=== PATIENT | male | born 1940 | race Two or more races ===

== ENCOUNTER 2022-11-17 17:57 | Inpatient (IN) | payer MEDICAID, OTHER ==
[~2022-11-17] VITALS: Ht 157.5 cm; Wt 63.3 kg
[2022-11-17 18:49] LABS: Basophils # (auto) 0.1 10 ^3/uL (0-0.2); Basophils % (auto) 0.8 % (0.0-2.0); Eosinophils # (auto) 0.1 10 ^3/uL (0-0.8); Eosinophils % (auto) 1.7 % (0.0-7.0); Hematocrit 41.6 % (41.0-53.0); Hemoglobin 13.8 g/dL (13.5-17.5); Lymphocytes # (auto) 3.5 10 ^3/uL (0.4-5.4); Lymphocytes % (auto) 42.6 % (10.0-50.0); Mean Corpuscular Hemoglobin 29.6 pg (28.0-32.0); Mean Corpuscular Volume 89.6 fL (80.0-100.0); Monocytes # (auto) 0.7 10 ^3/uL (0-1.3); Monocytes % (auto) 7.9 % (0.0-12.0); Neutrophils # (auto) 3.9 10 ^3/uL (1.6-8.6); Nucleated Red Blood Cells % 0.1 %; Red Blood Cells 4.65 10^6/uL (4.5-5.90); Red Cell Distribution Width 14.6 % (11.8-14.3); White Blood Cell 8.3 10^3/uL (4.4-10.8)
[2022-11-17 18:59] LABS: Urine Bacteria None Seen /hpf (None Seen); Urine WBC None Seen /hpf (0 - 3)
[2022-11-17 19:16] LABS: Urine Mucus MODERATE (None Seen)
[2022-11-17 19:19] LABS: Urine Blood Negative /uL (Negative); Urine Clarity CLEAR (Clear); Urine Color Straw (Yellow); Urine Protein, UAD 1+ (Negative); Urine Urobilinogen Normal (Negative); Urine pH 5 (5.0-8.0)
[2022-11-17 19:25] LABS: Albumin 3.6 g/dL (3.4-5.0); Magnesium 2.3 mg/dL (1.6-2.6); Potassium 3.9 mmol/L (3.5-5.1)
[2022-11-17 19:27] LABS: BUN/Creatinine Ratio 35.1 (10.0-20.0)
[2022-11-17 19:32] LABS: Bilirubin, Total 0.6 mg/dL (0.2-1.0); Total Protein 7.5 g/dL (6.4-8.2)
[2022-11-17] MEDS ORDERED: HYDROmorphone HCL 2 MG/ML VL/or syr IM ONE (21:45)
[2022-11-17] MEDS ORDERED: SODIUM CHLORIDE 0.9% 1,000 ML IV ONE (22:00)
[2022-11-17] MEDS ORDERED: NITROGLYCERIN 0.4 MG SL TAB SL PRN (23:30)
[2022-11-17] MEDS ORDERED: ONDANSETRON HCL 4 MG/2 ML VIAL IV PRN (23:30)
[2022-11-17] MEDS ORDERED: MORPHINE SULFATE INJ 2 MG/ml SYRG IV PRN (23:30)
[2022-11-18] MEDS ORDERED: cefTRIAXone 1GM/50ML D5W 50 ML IV ONE
[2022-11-18] MEDS: SODIUM CHLORIDE 0.9% 1,000 ML IV SCH ×2 (00:54→16:02)
[2022-11-18 02:06] VITALS: PULSE 79; RESP 12; O2SAT 97
[2022-11-18 07:37] LABS: Basophils # (auto) 0 10 ^3/uL (0-0.2); Basophils % (auto) 0.3 % (0.0-2.0); Eosinophils # (auto) 0 10 ^3/uL (0-0.8); Eosinophils % (auto) 0.6 % (0.0-7.0); Hematocrit 37.5 % (41.0-53.0); Hemoglobin 12.5 g/dL (13.5-17.5); Lymphocytes # (auto) 1.7 10 ^3/uL (0.4-5.4); Lymphocytes % (auto) 26.2 % (10.0-50.0); Mean Corpuscular Hemoglobin 29.7 pg (28.0-32.0); Mean Corpuscular Hgb Conc. 33.3 g/dL (32.0-36.0); Mean Corpuscular Volume 89.2 fL (80.0-100.0); Monocytes # (auto) 0.7 10 ^3/uL (0-1.3); Monocytes % (auto) 10.4 % (0.0-12.0); Neutrophils # (auto) 4.1 10 ^3/uL (1.6-8.6); Neutrophils % (auto) 62.5 % (37.0-80.0); Red Cell Distribution Width 14.1 % (11.8-14.3); White Blood Cell 6.6 10^3/uL (4.4-10.8)
[2022-11-18 07:40] VITALS: RESP 12; O2SAT 97
[2022-11-18 08:03] LABS: Albumin 2.9 g/dL (3.4-5.0); BUN/Creatinine Ratio 33.3 (10.0-20.0); Calcium 8.5 mg/dL (8.5-10.1); Potassium 3.8 mmol/L (3.5-5.1)
[2022-11-18 08:07] LABS: Bilirubin, Total 0.5 mg/dL (0.2-1.0); Total Protein 6.4 g/dL (6.4-8.2)
[2022-11-18] MEDS ORDERED: FAMOTIDINE (10MG/ML) 2ML VL IV SCH (10:00)
[2022-11-18 20:15] VITALS: PULSE 76; RESP 14; O2SAT 98
[2022-11-18 23:40] VITALS: BP 161/97; PULSE 72; RESP 18; TEMP 97.8; O2SAT 96
[2022-11-18] MEDS: hydrALAZINE HCL 20 MG/ML VL IV PRN (23:44)
[2022-11-19] VITALS: PULSE 72; RESP 18; O2SAT 96
[2022-11-19] MEDS: cefTRIAXone 1GM/50ML D5W 50 ML IV SCH (00:55)
[2022-11-19] MEDS ORDERED: TIOTCAP IN (03:38)
[2022-11-19] MEDS ORDERED: QUET100T38 PO (03:38)
[2022-11-19] MEDS ORDERED: CLON-853 PO (03:38)
[2022-11-19] MEDS ORDERED: FLUT100M IN (03:38)
[2022-11-19] MEDS ORDERED: TELM1TAB35 PO (03:38)
[2022-11-19] MEDS ORDERED: CARB-118 PO (03:38)
[2022-11-19] MEDS ORDERED: OLOP0.2S15 OP (03:59)
[2022-11-19] MEDS: SODIUM CHLORIDE 0.9% 1,000 ML IV SCH ×2 (08:50→18:00)
[2022-11-19 09:11] VITALS: BP 104/75; PULSE 76; RESP 19; TEMP 98.4; O2SAT 97
[2022-11-19 12:59] VITALS: BP 150/95; PULSE 68; RESP 14; TEMP 98; O2SAT 98
[2022-11-19] MEDS ORDERED: GADOTERATE MEG 7.5 MMOL/15ml INJ (0.5MMOL/ml) IV ONE (14:19)
[2022-11-19 17:16] VITALS: BP 165/98; PULSE 70; RESP 17; TEMP 98; O2SAT 97
[2022-11-19] MEDS: hydrALAZINE HCL 20 MG/ML VL IV PRN (17:46)
[2022-11-19 18:54] VITALS: BP 117/69; PULSE 102
[2022-11-19 22:00] VITALS: BP 133/70; PULSE 76; RESP 17; TEMP 98; O2SAT 98
[2022-11-20] MEDS: cefTRIAXone 1GM/50ML D5W 50 ML IV SCH (00:57)
[2022-11-20 05:00] VITALS: BP 138/67; PULSE 63; RESP 17; TEMP 98.1; O2SAT 98
[2022-11-20 08:30] VITALS: BP 133/78; PULSE 58; RESP 17; TEMP 97.5
[2022-11-20 09:00] VITALS: BP 133/78; PULSE 58; RESP 17; TEMP 97.5; O2SAT 98
[2022-11-20 09:25] LABS: INR 1.14 (0.9-1.15); Partial Thromboplastin Time 28.3 SEC (24.5-34.5); Prothrombin Time 11.9 sec (9.3-11.8)
[2022-11-20] MEDS ORDERED: CLON-857 PO (11:12)
[2022-11-20] MEDS ORDERED: ARTIFICIAL TEARS 15ml EACHEYE PRN (11:45)
[2022-11-20] MEDS: SODIUM CHLORIDE 0.9% 1,000 ML IV SCH (11:47)
[2022-11-20 12:45] VITALS: BP 141/73; PULSE 67; RESP 18; TEMP 97.6; O2SAT 98
[2022-11-20] MEDS ORDERED: LOSARTAN POTASSIUM 50 MG TAB PO ONE (16:30)
[2022-11-20 16:56] VITALS: BP 150/68; PULSE 61; RESP 17; TEMP 97.6; O2SAT 98
[2022-11-20 22:00] VITALS: BP 130/85; PULSE 63; RESP 16; TEMP 97.5; O2SAT 98
[2022-11-20] MEDS: CARBIDOPA W LEVODOPA 25/100mg TABLET PO SCH (22:00)
[2022-11-21] MEDS: cefTRIAXone 1GM/50ML D5W 50 ML IV SCH (01:07)
[2022-11-21 05:00] VITALS: BP 116/64; PULSE 69; RESP 16; TEMP 98.5; O2SAT 96
[2022-11-21 08:00] VITALS: BP 137/86; PULSE 63; RESP 16; RESP 18; TEMP 97.7
[2022-11-21] MEDS: LOSARTAN POTASSIUM 50 MG TAB PO SCH (09:28)
[2022-11-21] MEDS: CARBIDOPA W LEVODOPA 25/100mg TABLET PO SCH ×2 (09:28→21:46)
[2022-11-21 09:36] VITALS: BP 137/86; PULSE 65; RESP 20; TEMP 97.7; O2SAT 96
[2022-11-21] MEDS ORDERED: PATIENTS OWN MEDICATION PO SCH (10:00)
[2022-11-21] MEDS: ADVAIR 100/50 DISKUS PO SCH (13:22)
[2022-11-21] MEDS: SPIRIVA INHALER PO SCH (13:23)
[2022-11-21] MEDS: SODIUM CHLORIDE 0.9% 1,000 ML IV SCH (13:24)
[2022-11-21 16:32] VITALS: BP 158/94; PULSE 67; RESP 12; O2SAT 97
[2022-11-21 17:36] VITALS: BP 147/86; PULSE 71; RESP 20; TEMP 98.6; O2SAT 95
[2022-11-21 20:00] VITALS: PULSE 64; RESP 18; O2SAT 92
[2022-11-21] MEDS: DOCUSATE SOD 100 MG CAP PO PRN (21:45)
[2022-11-22] MEDS: cefTRIAXone 1GM/50ML D5W 50 ML IV SCH (00:58)
[2022-11-22] MEDS: ACETAMINOPHEN 325 MG TAB PO PRN ×2 (01:52→13:52)
[2022-11-22] MEDS: SODIUM CHLORIDE 0.9% 1,000 ML IV SCH ×2 (03:30→09:53)
[2022-11-22 05:00] VITALS: BP 126/77; PULSE 64; RESP 18; O2SAT 95
[2022-11-22 08:00] VITALS: BP 136/85; PULSE 78; RESP 18; TEMP 98; O2SAT 94; O2SAT 95
[2022-11-22] MEDS: LOSARTAN POTASSIUM 50 MG TAB PO SCH (09:43)
[2022-11-22] MEDS: CARBIDOPA W LEVODOPA 25/100mg TABLET PO SCH ×2 (09:43→22:03)
[2022-11-22] MEDS: ADVAIR 100/50 DISKUS PO SCH (09:49)
[2022-11-22] MEDS: SPIRIVA INHALER PO SCH (09:50)
[2022-11-22 12:00] VITALS: BP 150/78; PULSE 67; RESP 20; TEMP 98.5; O2SAT 97
[2022-11-22 16:00] VITALS: BP 134/83; PULSE 71; RESP 21; TEMP 97.3; O2SAT 96
[2022-11-22 20:00] VITALS: PULSE 69; RESP 20; O2SAT 98
[2022-11-22 22:00] VITALS: BP 155/74; PULSE 69; RESP 20; TEMP 98.3; O2SAT 98
[2022-11-22] MEDS: HYDROcodone-ACET 5/325MG TAB PO PRN (23:44)
[2022-11-23] VITALS (19 sets, daily range): BP systolic 111–167; BP diastolic 75–97; PULSE 60–75; RESP 12–21; TEMP 97.6–98.5; O2SAT 93–97
[2022-11-23] MEDS: cefTRIAXone 1GM/50ML D5W 50 ML IV SCH (03:21)
[2022-11-23 06:04] LABS: Basophils # (auto) 0 10 ^3/uL (0-0.2); Basophils % (auto) 0.6 % (0.0-2.0); Eosinophils # (auto) 0.2 10 ^3/uL (0-0.8); Eosinophils % (auto) 3.1 % (0.0-7.0); Hematocrit 33.8 % (41.0-53.0); Hemoglobin 11.4 g/dL (13.5-17.5); Lymphocytes # (auto) 1.7 10 ^3/uL (0.4-5.4); Mean Corpuscular Hgb Conc. 33.8 g/dL (32.0-36.0); Mean Corpuscular Volume 88.8 fL (80.0-100.0); Monocytes # (auto) 0.7 10 ^3/uL (0-1.3); Monocytes % (auto) 12.8 % (0.0-12.0); Neutrophils # (auto) 2.7 10 ^3/uL (1.6-8.6); Neutrophils % (auto) 50.5 % (37.0-80.0); Nucleated Red Blood Cells % 0.1 %; Red Blood Cells 3.81 10^6/uL (4.5-5.90); Red Cell Distribution Width 13.9 % (11.8-14.3); White Blood Cell 5.3 10^3/uL (4.4-10.8)
[2022-11-23 06:19] LABS: INR 1.15 (0.9-1.15); Partial Thromboplastin Time 30.4 SEC (24.5-34.5)
[2022-11-23 06:35] LABS: Albumin 2.7 g/dL (3.4-5.0); BUN/Creatinine Ratio 30.2 (10.0-20.0); Calcium 8.1 mg/dL (8.5-10.1); Potassium 3.7 mmol/L (3.5-5.1)
[2022-11-23 06:38] LABS: Bilirubin, Total 0.4 mg/dL (0.2-1.0); Total Protein 5.9 g/dL (6.4-8.2)
[2022-11-23] MEDS ORDERED: fentaNYL CITRATE 100 MCG/2 ML VL ONE (08:29)
[2022-11-23] MEDS ORDERED: LIDOCAINE 2%HCL (LOCAL ANESTH.) INJ 20ML MDV ONE (08:29)
[2022-11-23] MEDS ORDERED: MIDAZOLAM HCL 2MG/2ML 2ml VIAL (1mg/ml) ONE (08:29)
[2022-11-23] MEDS ORDERED: IODIXANOL 320MG/ML 100ML BTL IV ONE ×2 (08:54→09:14)
[2022-11-23] MEDS: CARBIDOPA W LEVODOPA 25/100mg TABLET PO SCH ×2 (10:00→22:04)
[2022-11-23] MEDS: ADVAIR 100/50 DISKUS PO SCH (10:00)
[2022-11-23] MEDS: SPIRIVA INHALER PO SCH (10:00)
[2022-11-23] MEDS: LOSARTAN POTASSIUM 50 MG TAB PO SCH (10:00)
[2022-11-23] MEDS: SODIUM CHLORIDE 0.9% 1,000 ML IV SCH (12:50)
[2022-11-23] MEDS: HYDROmorphone HCL 2 MG/ML VL/or syr IV PRN ×2 (15:18→20:12)
[2022-11-24] VITALS (7 sets, daily range): BP systolic 93–147; BP diastolic 67–84; PULSE 78–98; RESP 16–18; TEMP 97.3–98.7; O2SAT 93–96
[2022-11-24] MEDS: cefTRIAXone 1GM/50ML D5W 50 ML IV SCH (00:56)
[2022-11-24] MEDS: HYDROmorphone HCL 2 MG/ML VL/or syr IV PRN (01:08)
[2022-11-24] MEDS: SODIUM CHLORIDE 0.9% 1,000 ML IV SCH ×2 (05:30→21:41)
[2022-11-24] MEDS: LOSARTAN POTASSIUM 50 MG TAB PO SCH (09:54)
[2022-11-24] MEDS: CARBIDOPA W LEVODOPA 25/100mg TABLET PO SCH ×2 (09:54→21:41)
[2022-11-24] MEDS: HYDROcodone-ACET 5/325MG TAB PO PRN (09:55)
[2022-11-24] MEDS: DOCUSATE SOD 100 MG CAP PO PRN ×2 (09:58→21:41)
[2022-11-24] MEDS: ADVAIR 100/50 DISKUS PO SCH (10:00)
[2022-11-24] MEDS: SPIRIVA INHALER PO SCH (10:00)
[2022-11-25] MEDS: cefTRIAXone 1GM/50ML D5W 50 ML IV SCH (01:07)
[2022-11-25 05:00] VITALS: BP 128/75; PULSE 85; RESP 18; TEMP 98.6; O2SAT 94
[2022-11-25 08:00] VITALS: PULSE 82; RESP 20; O2SAT 94
[2022-11-25] MEDS: CARBIDOPA W LEVODOPA 25/100mg TABLET PO SCH (08:34)
[2022-11-25] MEDS: DOCUSATE SOD 100 MG CAP PO PRN (08:34)
[2022-11-25] MEDS: LOSARTAN POTASSIUM 50 MG TAB PO SCH (08:41)
[2022-11-25 09:00] VITALS: BP 108/72; PULSE 82; RESP 20; TEMP 97.6; O2SAT 94
[2022-11-25] MEDS: ADVAIR 100/50 DISKUS PO SCH (09:14)
[2022-11-25] MEDS: SPIRIVA INHALER PO SCH (09:14)
[2022-11-25 13:00] VITALS: BP 121/66; PULSE 80; RESP 19; TEMP 97.7; O2SAT 95
[2022-11-25] MEDS: SODIUM CHLORIDE 0.9% 1,000 ML IV SCH (14:50)
[2022-11-25 16:43] VITALS: BP 121/64; PULSE 80; RESP 19; TEMP 97.7; O2SAT 95
[2022-11-25 16:59] VITALS: BP 136/79; PULSE 88; RESP 20; TEMP 98; O2SAT 94
[2022-11-25] MEDS ORDERED: TIOTCAP IN (17:58)
[2022-11-25] MEDS ORDERED: FLUT100M IN (17:58)
== END 2022-11-25 18:00 | disposition home or self-care (01) | DRG 447 ==
LOC: ER 18:01 → EDBD 18:01 → OVERFLOW 23:28 → WEST WING 11-18 23:14
PROVIDERS: ADMIT Nurse Practitioner Family; ATTEND Internal Medicine
PROC: 04LA3ZZ Occlusion of Left Renal Artery, Percutaneous Approach (ICD-10-PCS; principal; 2022-11-23)
PROC: B4171ZZ Fluoroscopy of Left Renal Artery using Low Osmolar Contrast (ICD-10-PCS; 2022-11-23)
DX: D17.71 Benign lipomatous neoplasm of kidney (principal); F02.80 Dementia in other diseases classified elsewhere, unspecified severity, without behavioral disturbance, psychotic disturbance, mood disturbance, and anxiety; K40.30 Unilateral inguinal hernia, with obstruction, without gangrene, not specified as recurrent; G20 Parkinson's disease; N39.0 Urinary tract infection, site not specified; K80.70 Calculus of gallbladder and bile duct without cholecystitis without obstruction; I16.0 Hypertensive urgency; Q27.34 Arteriovenous malformation of renal vessel
CPT/HCPCS: 36251; 36415; 37243; 71045; 74176; 74183; 76000; 76942; 80053; 81001; 83735; 84484; 85025; 85610; 85730; 87086; 93005; 99152; C1894; G0378; J0696; J2250; J2405; Q9967

== ENCOUNTER 2024-07-14 21:04 | Inpatient (IN) | payer MEDICAID ==
[~2024-07-14] VITALS: Ht 165.1 cm; Wt 49.5 kg
[~2024-07-14 21:04] MED LIST: CARB-118 PO; CLON-857 PO; FLUT100M IN; OLOP0.2S15 OP; TELM1TAB35 PO; TIOTCAP IN
--- NOTE | 2024-07-14 22:09 | ED.PDOC ---
Altered Mental Status HPI Comments 84 year old male brought in by daughter presents to the ED with chief complaint of ALOC. Daughter reports that the patient is normally able to speak and interact normally, however, since today the patient has not been answering questions appropriately and is unresponsive. Daughter relays that the patient has history of fibrosis and is normally coughing out phlegm every day, however, now he has not been coughing any phlegm out. Daughter states that the patient was given Seroquel with no relief in symptoms. Daughter denies any fever, chills, chest pain, dizziness, headache, N/V/D, or abdominal pain. Chief Complaint: Flu like Time Seen by MD: 22:03 Primary Care Provider: OUT OF COUNTRY Reviewed Notes: Nurses Notes, Medications, Allergies Allergies: Coded Allergies: NO KNOWN ALLERGIES (Unverified , 11/17/22) Home Meds Active Scripts Tiotropium [place] Monohydrate (Spiriva Handihaler) 18 Mcg Cap, 18 MCG IN Q12HR for 30 Days, #60 CAP 5 Refills Prov:THOMAS LIND MD 11/25/22 Fluticasone-Salmeterol (Advair Diskus 100-50 Mcg/Dose) 1 Aer Aer, 1 AER IN BID, #60 AER 3 Refills Prov:THOMAS LIND MD 11/25/22 Reported Medications Clonazepam (Clonazepam) 2 Mg Tab, 2 MG PO HSPRN PRN for FOR INSOMNIA, TAB 11/20/22 Olopatadine HCl (Eye Allergy Itch Relief) 0.2 % Mickie, 0.2 % OP, ML 11/19/22 Fluticasone-Salmeterol (Advair Diskus 100-50 Mcg/Dose) 1 Aer Aer, 1 AER IN, AER 11/19/22 Tiotropium [place] Monohydrate (Spiriva Handihaler) 18 Mcg Cap, 18 MCG IN Q12HR, CAP 11/19/22 Telmisartan (Telmisartan) 40 Mg Tab, 40 MG PO DAILY, TAB 11/19/22 Levodopa W/Carbidopa (Sinemet) 25 /100 Tab, 1 TAB PO BID, #90 TAB 5 Refills 11/19/22 Information Source: Patient, Relative (Daughter) Mode of Arrival: Wheelchair Severity: Moderate, Unable to Care for Self, Unresponsive Timing: Hours Duration: Since onset Prehospital treatment: None Quality: Decreased Alertness, Change in Behavior, Not Eating Recent: Cough History of: None Past Medical History PAST MEDICAL HISTORY: Dementia Past Medical History (Other): Fibrosis Surgical History: Denies all surgeries Family History Family History: Reviewed,noncontributory to illness, No family hx of Cancer, No family hx of DM, No family hx of Heart mily, No family hx of HTN, No family hx ofKidney mily, No family hx of Liver mily, No family hx of Lung mily, No family hx of Stroke Social History Smoker: Non-Smoker Alcohol: Denies ETOH Use Drugs: Denies Drug Use Lives In: Home Constitutional: denies: chills, diaphoresis, fatigue, fever, malaise, sweats, weakness, others EENTM: denies: blurred vision, double vision, ear bleeding, ear discharge, ear drainage, ear pain, ear ringing, eye pain, eye redness, hearing loss, mouth pain, mouth swelling, nasal discharge, nose bleeding, nose congestion, nose pain, photophobia, tearing, throat pain, throat swelling, voice changes, others Respiratory: reports: cough; denies: hemoptysis, orthopnea, SOB at rest, shortness of breath, SOB with excertion, stridor, wheezing, others Cardiovascular: denies: chest pain, dizzy spells, diaphoresis, Dyspnea on exertion, edema, irregular heart beat, left arm pain, lightheadedness, palpitations, PND, syncope, others Gastrointestinal: denies: abdomen distended, abdominal pain, blood streaked bowels, constipated, diarrhea, dysphagia, difficulty swallowing, hematemesis, melena, nausea, poor appetite, poor fluid intake, rectal bleeding, rectal pain, vomiting, others Genitourinary: denies: burning, dysuria, flank pain, frequency, hematuria, incontinence, penile discharge, penile sore, pain, testicle pain, testicle swelling, urgency, others Neurological: denies: dizziness, fainting, headache, left sided numbness, left sided weakness, numbness, paresthesia, pre-existing deficit, right sided numbness, right sided weakness, seizure, speech problems, tingling, tremors, weakness, others Musculoskeletal: denies: back pain, gout, joint pain, joint swelling, muscle pain, muscle stiffness, neck pain, others Integumetry: denies: bruises, change in color, change in hair/nails, dryness, laceration, lesions, lumps, rash, wounds, others Allergic/Immunocompromised: denies: Difficulty Healing, Frequent Infections, Hives, Itching, others Hematologic/Lymphatic: denies: anemia, blood clots, easy bleeding, easy bruising, swollen glands, others Endocrine: denies: excessive hunger, excessive sweating, excessive thirst, excessive urination, flushing, intolerance to cold, intolerance to heat, unexplained weight gain, unexplained weight loss, others Psychiatric: denies: anxiety, bipolar disorder, depression, hopeless, panic disorder, schizophrenia, sleepless, suicidal, others Unable to Obtain due to: Altered Mental Status All Other Systems: Reviewed and Negative Physical Exam General Appearance: Severe Distress, Thin HEENT: Normal ENT Inspection, Pharynx Normal, TMs Normal Neck: Full Range of Motion, Non-Tender, Normal, Normal Inspection Respiratory: Chest Non-Tender, Decreased Breath Sounds (Bilaterally), Lungs Clear, No Accessory Muscle Use, No Respiratory Distress, Other (Tachypneic) Cardiovascular: No Edema, No JVD, No Murmur, No Gallop, Normal Peripheral Pulses, Regular Rate/Rhythm Breast Exam: Deferred Gastrointestinal: No Organomegaly, Non Tender, No Pulsatile Mass, Normal Bowel Sounds, Soft Genitalia: Deferred Pelvic: Deferred Rectal: Deferred Extremities: No calf tenderness, Normal capillary refill, Normal inspection, Normal range of motion, Non-tender, No pedal edema Musculoskeletal : Apperance: Normal Neurologic: sign carpenter II-XII nml as Tested, No Motor Deficits, Normal Mood, No Sensory Deficits, Other (Altered) Cerebellar Function: Normal Reflexes: Normal Skin: Dry, Pallor, Warm Lymphatic: No Adenopathy Was a procedure done? Was a procedure done?: No Differential Diagnosis (ALOC) Differential Diagnosis: Dehydration, Encephalopathy, Meningitis, Hypoxemia, Closed Head Injury, CVA, Mass Lesion X-Ray, Labs, Meds, VS Vital Signs Date Time Temp Pulse Resp B/P (MAP) Pulse Ox O2 Delivery O2 Flow Rate FiO2 07/14/24 23:30 97 22 94 Nasal Cannula* 4 36 07/14/24 22:30 98.4 97 22 134/93 (107) 94 98.4 07/14/24 21:57 88 07/14/24 21:25 98.0 116 28 116/55 (75) 91 98.0 Lab Test 07/15/24 00:30 07/14/24 23:35 07/14/24 22:40 07/14/24 21:20 Range/Units Lactic Acid Level Pending 2.2 *H 0.4-2.0 mmol/L Troponin I High Sensitivity 7 7 </=54 ng/L White Blood Count 10.7 4.4-10.8 10^3/uL Red Blood Count 4.33 L 4.5-5.90 10^6/uL Hemoglobin 13.0 L 13.5-17.5 g/dL Hematocrit 38.2 L 41.0-53.0 % Mean Corpuscular Volume 88.1 80.0-100.0 fL Mean Corpuscular Hemoglobin 30.0 28.0-32.0 pg Mean Corpuscular Hemoglobin Concent 34.0 32.0-36.0 g/dL Red Cell Distribution Width 15.3 H 11.8-14.3 % Platelet Count 213 140-450 10^3/uL Mean Platelet Volume 7.5 6.9-10.8 fL Neutrophils (%) (Auto) 79.8 37.0-80.0 % Lymphocytes (%) (Auto) 11.5 10.0-50.0 % Monocytes (%) (Auto) 8.3 0.0-12.0 % Eosinophils (%) (Auto) 0.2 0.0-7.0 % Basophils (%) (Auto) 0.2 0.0-2.0 % Neutrophils # (Auto) 8.5 1.6-8.6 10 ^3/uL Lymphocytes # (Auto) 1.2 0.4-5.4 10 ^3/uL Monocytes # (Auto) 0.9 0-1.3 10 ^3/uL Eosinophils # (Auto) 0 0-0.8 10 ^3/uL Basophils # (Auto) 0 0-0.2 10 ^3/uL Nucleated Red Blood Cells 0.0 % Sodium Level 142 136-145 mmol/L Potassium Level 3.7 3.5-5.1 mmol/L Chloride Level 107 98-107 mmol/L Carbon Dioxide Level 25 20-31 mmol/L Anion Gap 10 5-15 Blood Urea Nitrogen 25 H 9-23 mg/dL Creatinine 0.83 0.700-1.30 mg/dL Glomerular Filtration Rate Calc 85 >90 mL/min BUN/Creatinine Ratio 30.1 H 10.0-20.0 Serum Glucose 151 H 74-106 mg/dL Calcium Level 9.8 8.7-10.4 mg/dL Total Bilirubin 1.2 H 0.2-1.0 mg/dL Aspartate Amino Transferase (AST) 23 13-40 U/L Alanine Aminotransferase (ALT) 19 7-40 U/L Alkaline Phosphatase 75 46-116 U/L Ammonia 12 11-32 umol/L Total Protein 6.9 5.7-8.2 g/dL Albumin 3.8 3.2-4.8 g/dL Influenza Type A Antigen Negative Negative Influenza Type B Antigen Negative Negative SARS-CoV-2 Antigen (Rapid) Negative NEGATIVE X-Ray, Labs, Meds, VS Comment Concerns of possible septicemia. Source unknown. Pending CT chest. With multiple kidney stones that he was possibility of urosepsis. Patient will be started on azithromycin and Rocephin Blood cultures obtained Patient hemodynamically stable Previous charts reviewed Time of 1ST Reevaluation: 23:03 Reevaluation 1ST: Unchanged Patient Education/Counseling: Diagnosis, Treatment Family Education/Counseling: Diagnosis, Treatment Departure 1 Departure Time of Disposition: 01:02 Impression: Primary Impression: Urinary tract infection Qualified Codes: N30.00 - Acute cystitis without hematuria Additional Impressions: Metabolic encephalopathy Pneumonia Qualified Codes: J18.9 - Pneumonia, unspecified organism Disposition: ADMITTED INPATIENT Condition: Stable Critical Care Note Critical Care Time?: No Stability Stability form required: No Heart Score Heart Score: Heart Score Response (Comments) Value History N/A 0 EKG N/A 0 Age N/A 0 Risk Factors N/A 0 Troponin N/A 0 Total 0 I personally scribed for LUCIANA HARLEY CARTOGRAPHY TECHNICIAN ([email or web address]) on 07/14/24 at 22:09. Electronically submitted by Jorge Cleveland ([email or web address]). I personally scribed for LUCIANA HARLEY CARTOGRAPHY TECHNICIAN ([email or web address]) on 07/14/24 at 22:12. Electronically submitted by Jorge Cleveland ([email or web address]). LUCIANA HARLEY CARTOGRAPHY TECHNICIAN Jul 14, 2024 22:09
[2024-07-14 22:59] LABS: Rapid Influenza A Negative (Negative); Rapid Influenza B Negative (Negative)
[2024-07-14 23:00] LABS: COVID19 ANTIGEN SOFIA FIA NEGATIVE (NEGATIVE)
[2024-07-14 23:00] LABS: Basophils # (auto) 0 10 ^3/uL (0-0.2); Basophils % (auto) 0.2 % (0.0-2.0); Eosinophils # (auto) 0 10 ^3/uL (0-0.8); Eosinophils % (auto) 0.2 % (0.0-7.0); Hematocrit 38.2 % (41.0-53.0); Lymphocytes # (auto) 1.2 10 ^3/uL (0.4-5.4); Lymphocytes % (auto) 11.5 % (10.0-50.0); Mean Corpuscular Volume 88.1 fL (80.0-100.0); Monocytes # (auto) 0.9 10 ^3/uL (0-1.3); Monocytes % (auto) 8.3 % (0.0-12.0); Neutrophils # (auto) 8.5 10 ^3/uL (1.6-8.6); Neutrophils % (auto) 79.8 % (37.0-80.0); Platelet Count (auto) 213 10^3/uL (140-450); Red Blood Cells 4.33 10^6/uL (4.5-5.90); Red Cell Distribution Width 15.3 % (11.8-14.3); White Blood Cell 10.7 10^3/uL (4.4-10.8)
--- NOTE | 2024-07-14 23:18 | DVH ---
CHEST RADIOGRAPH Indication: sob Technique: Single frontal view of the chest was obtained Comparison: XY CHEST XRAY 1 VIEW on DOS: 11/21/[address] examination of the abdomen of FINDINGS: there are increased interstitial markings noted bilaterally. There is an enlarged prominent right hil um. In market maker CT examination of today's date lung windows demonstrate stranding in the lung bases particularly the left lung base and probable interstitial lung changes. There may be a left perihila r mass. Follow-up CT examination of the chest is suggested. IMPRESSION: Increased interstitial markings suggesting chronic changes. In market [employer] CT abdomen today's date the re was a left retro cardiac mass follow-up CT examination of the chest is suggested
--- NOTE | 2024-07-14 23:22 | DVH ---
CT HEAD WITHOUT CONTRAST INDICATION: aloc EXAM DATE: 07/14/2024 10:44 PM COMPARISON: None RADIATION DOSE: CTDIvol: 5.1 mGy, DLP: 703.23 mGy*cm PROCEDURE: CT scans of the head were obtained from the vertex to the skull base. Sagittal and coronal reconstructions were provided. All CT scans at this medical facility are performed using dose modulation techniques as appropriate t o a performed exam including the following: Automated exposure control was utilized; adjustment of th e MA and/or KV according to patient size; and use of iterative reconstruction technique. FINDINGS: There is a very mild generalized atrophy with no midline shift focal mass effect no evidenc e for intracranial hemorrhage or 4 stroke mastoid air cells are unremarkable. There is debris in bot h the right and left external auditory canals more on the left than the right clinical correlation is advised. Middle ears and internal auditory canals are unremarkable. Paranasal sinuses appear to be g rossly unremarkable. Calvarium is intact. IMPRESSION: 1. Generalized cortical atrophy and there is debris in the external auditory canals bilaterally clini kunal correlation is advised
[2024-07-14 23:23] LABS: Alanine Aminotransferase 19 U/L (7-40); Albumin 3.8 g/dL (3.2-4.8); Alkaline Phosphatase 75 U/L (46-116); Anion Gap 10 (5-15); Aspartate Aminotransferase 23 U/L (13-40); BUN/Creatinine Ratio 30.1 (10.0-20.0); Bilirubin, Total 1.2 mg/dL (0.2-1.0); Calcium 9.8 mg/dL (8.7-10.4); Carbon Dioxide 25 mmol/L (20-31); Potassium 3.7 mmol/L (3.5-5.1); Sodium 142 mmol/L (136-145); Total Protein 6.9 g/dL (5.7-8.2)
[2024-07-14 23:24] LABS: Blood Urea Nitrogen 25 mg/dL (9-23); Chloride 107 mmol/L (98-107); Glucose 151 mg/dL (74-106)
[2024-07-14 23:27] LABS: Lactic Acid w/Reflex 2.2 mmol/L (0.4-2.0)
[2024-07-14 23:30] VITALS: PULSE 97; RESP 22; O2SAT 94
[2024-07-15] VITALS (7 sets, daily range): BP systolic 148–157; BP diastolic 79–118; PULSE 56–82; RESP 17–20; TEMP 96.3–98.1; O2SAT 95–99
--- NOTE | 2024-07-15 | DVH ---
Exam: CT AB PEL WO CON-NO ORAL OR IV History: abd swelling Comparison Study: CT CT AB PEL WO CON-NO ORAL OR IV on DOS: 11/17/22 Contrast: None TECHNIQUE: Multidetector CT of abdomen pelvis without IV contrast. Radiation Dose Information: CT Dose: CTDI volume is 26.75 mGy. Dose-length product is 703.23 mGy*cm FINDINGS: There are chronic interstitial changes in the lung bases is evidence for either mass focal consolidat e in the left retrocardiac lung base. Heart size still within normal limits there are few calcificati ons in the coronary arteries there is anasarca left kidney appears to be atrophied significantly smal ler than the right kidney there is a simple cyst involving the left kidney measuring 4.[address] ool burden in the rectosigmoid there central gland calcifications in the prostate in the bones are os teopenic. There are calcifications in the superficial femoral arteries. Bones are osteopenic. No evidence for g astrointestinal obstruction. Liver is normal in size. Spleen is normal size. There are bilateral smal l stones in the interpolar regions of the kidneys. IMPRESSION: 1. Probable constipation. Some evidence for atrophic changes involving the left kidney. There are bilateral small stones in the collecting system both kidneys. There are chronic changes in the lung bases in the suggestion of a focal consolidate or mass in the l eft lung base follow-up CT examination of the chest is suggested.
--- NOTE | 2024-07-15 03:00 | DVH ---
Procedure: CT CHEST WITHOUT CONTRAST Reason for study/Clinical History: sob Comparison Study: None available at time of dictation. Exam Date: 07/15/2024 02:11 AM TECHNIQUE: Multidetector CT of the chest was performed from the lung apices to the upper abdomen with out the use of intravenous contract. Axial, coronal and sagittal multiplanar reformats were performed . Radiation Dose Information: CT Dose: CTDI volume is 5.92 mGy. Dose-length product is 228.37 mGy*cm The dose indicators for CT are the volume Computed Tomography (CT) Dose Index (CTDIvol) and the Dose Length Product (DLP), and are measured in units of mGy and mGy-cm, respectively. These indicators are not patient dose, but values generated from the CT scanner acquisition factors. The report includes radiation exposure data for exposures received during this examination. FINDINGS: Lower neck: Normal thyroid. Lungs: Patchy nodular airspace disease is noted in the posterior aspect of the right lower lobe near the costophrenic sulcus with triangular masslike atelectasis or consolidation in the posterior aspec t of the left lower lobe, indeterminate. Along the right major fissure there is a subsolid 7 mm pleur al-based nodule seen to best advantage on sagittal imaging, see series 602 image 28. Heart/Vascular Structures: Normal heart size. Coronary artery calcification is present. Lymph Nodes: Shotty mediastinal lymphadenopathy is noted most prominently precarinal and in the aorto pulmonary window. Pleura: No pleural effusion or significant pneumothorax. Musculoskeletal: The bones are generally osteopenic. Flowing anterior osteophytes are noted compatib le with diffuse idiopathic skeletal hyperostosis. Soft tissues: Normal. Upper abdomen: Limited portions of the upper abdomen are unremarkable. IMPRESSION: 1. Patchy nodular basilar disease with masslike airspace opacity in the left lower lobe. Suggest foll ow-up after presumptive therapy with noncontrast CT of the thorax to document resolution, in no more than 1 month. Radiation optimization: All CT scans at this facility use at least one of these dose optimization catarina hniques: automated exposure control mA and/or kV adjustment per patient size (includes targeted exam s where dose is matched to clinical indication) or iterative reconstruction.
[2024-07-15] MEDS: cefTRIAXone 2GM/50ML D5W 50 ML IV ONE (03:31)
[2024-07-15] MEDS: AZITHROMYCIN 500MG/ 250ML 250 ML IV ONE (04:31)
[2024-07-15] MEDS ORDERED: DEXTROSE (50%) 50ML SYRG IV PRN (06:45)
[2024-07-15] MEDS ORDERED: ONDANSETRON HCL 4 MG/2 ML VIAL IV PRN (06:45)
--- NOTE | 2024-07-15 07:17 | DVHHP2 ---
History of Present Illness Reason for Visit: Flu-like symptoms History of Present Illness Graham Forte is an 84-year-old male with past medical history of dementia, fibrosis, Parkinson's, kidney stones, prostatectomy, and kidney stone removal who presents to the ED with altered level of consciousness, productive p hlegm, flu-like symptoms, sore throat, and congestion. Daughter Valencia at bedside states that the patient has been coughing phlegm for the last 5-6 years also complaining of poor appetite in the last few days. Upon examination patient is on 4 L via room air flow meter. Patient does not use oxygen at home per daughter. 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 Daughter also reports that there is some testicular swelling but no pain endorsed. Patient currently denies any chest pain, fever, chills, recent sick contacts, recent trauma or injury, abdominal pain, nausea, vomiting, or diarrhea. ENROLLED AGENT: Dementia Past Medical History Parkinson's Fibrosis Kidney stones Past Surgical History: Other (Prostatectomy and kidney stone removal via groin per daughter) Family History: Cancer, DM, Other (Mom with lung cancer, bronchitis, and diabetes) Smoke: No ALCOHOL: none Drugs: None Lives: with Family Domestic Violence: Neg Review of Systems ENT: Throat pain Respiratory: Cough, Sputum Allergies: Coded Allergies: NO KNOWN ALLERGIES (Unverified , 11/17/22) Medications Current Medications Medications Dose Ordered Sig/Willam Route Start Time Stop Time Status Last Admin Dose Admin Azithromycin 250 ml @ 125 mls/hr DAILY IV 07/15/24 10:00 UNV Ceftriaxone Sodium 50 ml @ 100 mls/hr DAILY@09 IV 07/15/24 09:00 UNV Ondansetron HCl 4 mg Q4HP PRN IV 07/15/24 06:45 UNV Enoxaparin Sodium 40 mg DAILY SC 07/15/24 10:00 UNV Acetaminophen 650 mg Q6HP PRN PO 07/15/24 06:45 UNV Exam Vital Signs Vital Signs Date Time Temp Pulse Resp B/P (MAP) Pulse Ox O2 Delivery O2 Flow Rate FiO2 07/15/24 06:00 76 16 142/82 (102) 95 07/14/24 23:30 Nasal Cannula* 4 36 07/14/24 22:30 98.4 98.4 General Appearance: Alert, Oriented X3, Cooperative, No acute distress HEENT: Atraumatic, PERRLA, EOMI, Mucous membr. moist/pink Respiratory: Normal air movement Cardiovascular: Normal S1, Normal S2 Abdominal: Normal bowel sounds, Soft, No tenderness Extremities: No clubbing, No cyanosis, Normal pulses Neuro: Normal speech, Normal tone, Sensation intact Psych/Mental Status: Mental status NL, Mood NL Labs/Xrays Labs Test 07/15/24 00:30 07/14/24 23:35 07/14/24 22:40 07/14/24 21:20 Range/Units Lactic Acid Level 1.2 0.4-2.0 mmol/L Troponin I High Sensitivity 7 </=54 ng/L White Blood Count 10.7 4.4-10.8 10^3/uL Red Blood Count 4.33 L 4.5-5.90 10^6/uL Hemoglobin 13.0 L 13.5-17.5 g/dL Hematocrit 38.2 L 41.0-53.0 % Mean Corpuscular Volume 88.1 80.0-100.0 fL Mean Corpuscular Hemoglobin 30.0 28.0-32.0 pg Mean Corpuscular Hemoglobin Concent 34.0 32.0-36.0 g/dL Red Cell Distribution Width 15.3 H 11.8-14.3 % Platelet Count 213 140-450 10^3/uL Mean Platelet Volume 7.5 6.9-10.8 fL Neutrophils (%) (Auto) 79.8 37.0-80.0 % Lymphocytes (%) (Auto) 11.5 10.0-50.0 % Monocytes (%) (Auto) 8.3 0.0-12.0 % Eosinophils (%) (Auto) 0.2 0.0-7.0 % Basophils (%) (Auto) 0.2 0.0-2.0 % Neutrophils # (Auto) 8.5 1.6-8.6 10 ^3/uL Lymphocytes # (Auto) 1.2 0.4-5.4 10 ^3/uL Monocytes # (Auto) 0.9 0-1.3 10 ^3/uL Eosinophils # (Auto) 0 0-0.8 10 ^3/uL Basophils # (Auto) 0 0-0.2 10 ^3/uL Nucleated Red Blood Cells 0.0 % Sodium Level 142 136-145 mmol/L Potassium Level 3.7 3.5-5.1 mmol/L Chloride Level 107 98-107 mmol/L Carbon Dioxide Level 25 20-31 mmol/L Anion Gap 10 5-15 Blood Urea Nitrogen 25 H 9-23 mg/dL Creatinine 0.83 0.700-1.30 mg/dL Glomerular Filtration Rate Calc 85 >90 mL/min BUN/Creatinine Ratio 30.1 H 10.0-20.0 Serum Glucose 151 H 74-106 mg/dL Calcium Level 9.8 8.7-10.4 mg/dL Total Bilirubin 1.2 H 0.2-1.0 mg/dL Aspartate Amino Transferase (AST) 23 13-40 U/L Alanine Aminotransferase (ALT) 19 7-40 U/L Alkaline Phosphatase 75 46-116 U/L Ammonia 12 11-32 umol/L Total Protein 6.9 5.7-8.2 g/dL Albumin 3.8 3.2-4.8 g/dL Influenza Type A Antigen Negative Negative Influenza Type B Antigen Negative Negative SARS-CoV-2 Antigen (Rapid) Negative NEGATIVE ULTRASOUND OF SCROTUM AND CONTENTS. INDICATION: swelling COMPARISON: None TECHNIQUE: Multiple real-time grayscale sonographic and color and duplex Doppler images of the scrotum and its contents were obtained. FINDINGS: The right testicle measures 1.9 x 2.6 x 1.9 cm. The left testicle measures 2.2 x 1.8 x 1.8 cm. Both testicles demonstrate homogeneous echotexture without evidence of focal lesions. There is enlargement of the right epididymis measuring 2.2 cm. There is microlithiasis in the right testicle. Left varicocele is visualized. Bilateral small hydroceles. Multiple left epididymal cysts measuring up to 0.5 cm. Subsequent color and duplex Doppler interrogation of the testes demonstrated symmetric normal vascular flow to both testicles. IMPRESSION: Enlargement and heterogeneity of the right epididymis which can be seen in the setting of epididymitis. Small bilateral hydroceles. Right testicular microlithiasis. Procedure: CT CHEST WITHOUT CONTRAST Reason for study/Clinical History: sob Comparison Study: None available at time of dictation. Exam Date: 07/15/2024 02:11 AM TECHNIQUE: Multidetector CT of the chest was performed from the lung apices to the upper abdomen without the use of intravenous contract. Axial, coronal and sagittal multiplanar reformats were performed. Radiation Dose Information: CT Dose: CTDI volume is 5.92 mGy. Dose-length product is 228.37 mGy*cm The dose indicators for CT are the volume Computed Tomography (CT) Dose Index (CTDIvol) and the Dose Length Product (DLP), and are measured in units of mGy and mGy-cm, respectively. These indicators are not patient dose, but values g enerated from the CT scanner acquisition factors. The report includes radiation exposure data for exposures received during this examination. FINDINGS: Lower neck: Normal thyroid. Lungs: Patchy nodular airspace disease is noted in the posterior aspect of the right lower lobe near the costophrenic sulcus with triangular masslike atelectasis or consolidation in the posterior aspect of the left lower lobe, indeterminate. Along the right major fissure there is a subsolid 7 mm pleural- based nodule seen to best advantage on sagittal imaging, see series 602 image 28. Heart/Vascular Structures: Normal heart size. Coronary artery calcification is present. Lymph Nodes: Shotty mediastinal lymphadenopathy is noted most prominently precarinal and in the aortopulmonary window. Pleura: No pleural effusion or significant pneumothorax. Musculoskeletal: The bones are generally osteopenic. Flowing anterior osteophytes are noted compatible with diffuse idiopathic skeletal hyperostosis. Soft tissues: Normal. Upper abdomen: Limited portions of the upper abdomen are unremarkable. IMPRESSION: 1. Patchy nodular basilar disease with masslike airspace opacity in the left lower lobe. Suggest follow-up after presumptive therapy with noncontrast CT of the thorax to document resolution, in no more than [address] HEAD WITHOUT CONTRAST INDICATION: [facility] EXAM DATE: 07/14/2024 10:44 PM COMPARISON: None RADIATION DOSE: CTDIvol: 5.1 mGy, DLP: 703.23 mGy*cm PROCEDURE: CT scans of the head were obtained from the vertex to the skull base. Sagittal and coronal reconstructions were provided. All CT scans at this medical facility are performed using dose modulation techniques as appropriate to a performed exam including the following: Automated exposure control was utilized; adjustment of the MA and/or KV according to patient size; and use of iterative reconstruction technique. FINDINGS: There is a very mild generalized atrophy with no midline shift focal mass effect no evidence for intracranial hemorrhage or 4 stroke mastoid air cells are unremarkable. There is debris in both the right and left external auditory canals more on the left than the right clinical correlation is advised. Middle ears and internal auditory canals are unremarkable. Paranasal sinuses appear to be grossly unremarkable. Calvarium is intact. IMPRESSION: 1. Generalized cortical atrophy and there is debris in the external auditory canals bilaterally clinical correlation is advised CHEST RADIOGRAPH Indication: sob Technique: Single frontal view of the chest was obtained Comparison: XY CHEST XRAY 1 VIEW on DOS: 11/21/[address] examination of the abdomen of FINDINGS: there are increased interstitial markings noted bilaterally. There is an enlarged prominent right hilum. In head orthopedic team physician CT examination of lung windows demonstrate stranding in the lung bases particularly the left lung base and probable interstitial lung changes. There may be a left perihilar mass. Follow-up CT examination of the chest is suggested. IMPRESSION: Increased interstitial markings suggesting chronic changes. In head orthopedic team physician CT abdomen there was a left retro cardiac mass follow-up CT examination of the chest is suggested Exam: CT AB PEL WO CON-NO ORAL OR IV History: abd swelling Comparison Study: CT CT AB PEL WO CON-NO ORAL OR IV on DOS: 11/17/22 Contrast: None TECHNIQUE: Multidetector CT of abdomen pelvis without IV contrast. Radiation Dose Information: CT Dose: CTDI volume is 26.75 mGy. Dose-length product is 703.23 mGy*cm FINDINGS: There are chronic interstitial changes in the lung bases is evidence for either mass focal consolidate in the left retrocardiac lung base. Heart size still within normal limits there are few calcifications in the coronary arteries there is anasarca left kidney appears to be atrophied significantly smaller than the right kidney there is a simple cyst involving the left kidney measuring 4.[address]ool burden in the rectosigmoid there central gland calcifications in the prostate in the bones are osteopenic. There are calcifications in the superficial femoral arteries. Bones are osteopenic. No evidence for gastrointestinal obstruction. Liver is normal in size. Spleen is normal size. There are bilateral small stones in the interpolar regions of the kidneys. IMPRESSION: 1. Probable constipation. Some evidence for atrophic changes involving the left kidney. There are bilateral small stones in the collecting system both kidneys. There are chronic changes in the lung bases in the suggestion of a focal consolidate or mass in the left lung base follow-up CT examination of the chest is suggested. Assessment/Plan Assessment/Plan Assessment Lactic acidosis likely due to UTI Rule out sepsis Hyperbilirubinemia Hyperglycemia Acute encephalopathy Probable pneumonia Chronic cough Testicular swelling likely due to Epididymitis Small bilateral hydroceles Right testicular microlithiasis ? Left lower lobe mass History of dementia History of Parkinson's History of kidney stones History of fibrosis History of prostatectomy Plan Admit to [facility] IV antibiotics-azithromycin plus ceftriaxone CT chest Troponin negative x2 Chest x-ray Ammonia level COVID negative Flu negative Lactic UA CT abdomen and pelvis CT head Hemoglobin A1c Testicular ultrasound Duo nebs Inhaled steroids CEA Dietary consult Pulmonary consult Home medications reconciled DVT prophylaxis-Lovenox PUD prophylaxis-Protonix Discussed plan of care with patient, patient's daughter, and nurse Plan discussed with: Patient, Daughter My Orders Orders - ETHAN LESTER [employer]INE[employer] Procedure Category Date Status Time Azithromycin 500mg/ PHA 07/15/24 Transmitted 250ml (Zithromax 50 10:00 Ceftriaxone Ivpb PHA 07/15/24 Transmitted Rocephin 09:00 Admit ADMIT 07/15/24 Transmitted 06:43 Allergies BERNARD 07/15/24 Transmitted 06:43 Code Status CODE 07/15/24 Transmitted 06:43 Ondansetron Hcl PHA 07/15/24 Transmitted (Zofran) 06:45 Enoxaparin Sodium PHA 07/15/24 Transmitted (Lovenox) 10:00 Complete Blood Count LAB 07/16/24 Verified 04:00 Comprehensive LAB 07/16/24 Verified Metabolic Panel 04:00 Cardiac DIET 07/15/24 Transmitted Diet-2gna,Lofat,Lochol Breakfast Acetaminophen Tablet PHA 07/15/24 Transmitted (Tylenol Tablet) 06:45 Testicular Ultrasound US 07/15/24 Transmitted 06:43 *Consult CONS 07/15/24 Transmitted / 06:43 Hemoglobin A1c LAB 07/15/24 Transmitted 06:43 Glucose Blood PHA 07/15/24 Transmitted (Accu-Chek Comfort 07:00 Mild Sliding Scale PHA 07/15/24 Transmitted 07:00 Dextrose 50% Syringe PHA 07/15/24 Transmitted 06:45 Carbidopa W Levodopa PHA 07/15/24 Transmitted 25/100mg (Sinemet 2 10:00 (Nf) Clonazepam PHA 07/15/24 Transmitted 06:45 (Nf) Telmisartan PHA 07/15/24 Transmitted 10:00 Date of Service: Jul 15, 2024 Billing Provider: ETHAN LESTER Common Visit Codes: [id number] INP/OBS CARE (HIGH) ETHAN LESTER Jul 15, 2024 07:17
[2024-07-15] MEDS: InsuLIN REG 1unit/0.01ml Soln (100units/ml) SC SCH (08:40)
[2024-07-15] MEDS: ACCU-CHEK COMFORT CURVE STRIP VI SCH (08:40)
--- NOTE | 2024-07-15 09:05 | DVH ---
ULTRASOUND OF SCROTUM AND CONTENTS. INDICATION: swelling COMPARISON: None TECHNIQUE: Multiple real-time grayscale sonographic and color and duplex Doppler images of the scrotu m and its contents were obtained. FINDINGS: The right testicle measures 1.9 x 2.6 x 1.9 cm. The left testicle measures 2.2 x 1.8 x 1.8 cm. Both testicles demonstrate homogeneous echotexture without evidence of focal lesions. There is enlargement of the right epididymis measuring 2.2 cm. There is microlithiasis in the right t esticle. Left varicocele is visualized. Bilateral small hydroceles. Multiple left epididymal cysts m easuring up to 0.5 cm. Subsequent color and duplex Doppler interrogation of the testes demonstrated symmetric normal vascula r flow to both testicles. IMPRESSION: Enlargement and heterogeneity of the right epididymis which can be seen in the setting of epididymiti s. Small bilateral hydroceles. Right testicular microlithiasis.
[2024-07-15] MEDS: BUDESONIDE (INHALATION) 0.5 MG/2 ML NEB NEB SCH (09:22)
[2024-07-15] MEDS ORDERED: CARBIDOPA W LEVODOPA 25/100mg TABLET PO SCH (10:00)
[2024-07-15] MEDS: ENOXAPARIN SOD 30 MG/0.3 ML SYRINGE SC SCH (10:22)
[2024-07-15] MEDS ORDERED: clonazePAM 0.5 MG TAB PO PRN (11:30)
[2024-07-15 12:45] LABS: Urine Bacteria MANY /hpf (None Seen); Urine Blood 1+ /uL (Negative); Urine Clarity Turbid (Clear); Urine Color Yellow (Yellow); Urine Mucus FEW (None Seen); Urine Protein, UAD 1+ (Negative); Urine Specific Gravity 1.026 (1.001-1.035); Urine Squamous Epithelial Cell FEW /hpf (<5); Urine Urobilinogen Normal (Negative); Urine WBC 60 /HPF (0-3); Urine pH 5.5 (5.0-9.0)
[2024-07-15] MEDS: PANTOPRAZOLE 40 MG/10 ML VIAL INJ IV SCH (14:44)
--- NOTE | 2024-07-15 19:43 | DVHINCON2 ---
Date of service: Jul 15, 2024 Referring Physician Driss Calloway NP Reason for Consultation Acute hypoxic respiratory failure, dyspnea on exertion and COPD History of Present Illness An 84-year-old man with past medical history that includes fibrosis, Parkinson's disease, kidney stones and dementia who presented to ED on 07/14/24 with altered level of consciousness and flu-like symptoms with productive phlegm, sore throat and congestion. Per daughter, patient has been coughing up phlegm for the last 5-6 years; also complaining of poor appetite in the past few days. Patient does not use oxygen at home. 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 Pt also reported some testicular swelling but no pain. He denied chest pain, fever, chills, recent sick contacts or GI complaints. Patient was admitted for further care and pulmonary consultation is requested for evaluation and management due to the above findings. Review of Systems: 14-point review of systems negative unless otherwise noted above. Past Medical History: Fibrosis, Parkinson's disease, Kidney stones, dementia Past Surgical History: Prostatectomy and kidney stone removal Medications: Reviewed. Allergies: No known drug allergies. Family History: Cancer, DM. Mom with lung cancer, bronchitis, and diabetes. Social History: Nonsmoker. No alcohol or illicit drug use. Allergies: Coded Allergies: NO KNOWN ALLERGIES (Unverified , 11/17/22) Home Meds Active Scripts Tiotropium [place] Monohydrate (Spiriva Handihaler) 18 Mcg Cap, 18 MCG IN Q12HR for 30 Days, #60 CAP 5 Refills Prov:THOMAS LIND MD 11/25/22 Fluticasone-Salmeterol (Advair Diskus 100-50 Mcg/Dose) 1 Aer Aer, 1 AER IN BID, #60 AER 3 Refills Prov:THOMAS LIND MD 11/25/22 Reported Medications Clonazepam (Clonazepam) 2 Mg Tab, 2 MG PO HSPRN PRN for FOR INSOMNIA, TAB 11/20/22 Olopatadine HCl (Eye Allergy Itch Relief) 0.2 % Mickie, 0.2 % OP, ML 11/19/22 Fluticasone-Salmeterol (Advair Diskus 100-50 Mcg/Dose) 1 Aer Aer, 1 AER IN, AER 11/19/22 Tiotropium [place] Monohydrate (Spiriva Handihaler) 18 Mcg Cap, 18 MCG IN Q12HR, CAP 11/19/22 Telmisartan (Telmisartan) 40 Mg Tab, 40 MG PO DAILY, TAB 11/19/22 Levodopa W/Carbidopa (Sinemet) 25 /100 Tab, 1 TAB PO BID, #90 TAB 5 Refills 11/19/22 Current Medications Current Medications Medications (Trade) Dose Ordered Sig/Willam Route PRN Reason Start Time Stop Time Status Last Admin Azithromycin 250 ml @ 125 mls/hr DAILY IV 07/16/24 10:00 Ceftriaxone Sodium 50 ml @ 100 mls/hr DAILY@09 IV 07/16/24 09:00 Ondansetron HCl (Zofran) 4 mg Q4HP PRN IV NAUSEA / VOMITING 07/15/24 06:45 Enoxaparin Sodium (Lovenox) 30 mg DAILY SC 07/15/24 10:00 07/15/24 10:22 Acetaminophen (Tylenol Tablet) 650 mg Q6HP PRN PO PAIN SCALE 1-3 OR TEMP>100.4 07/15/24 06:45 Diagnostic Test (Pha) (Accu-Chek Comfort Curve T) 1 strip ACHS 07/15/24 07:00 07/15/24 14:24 DC 07/15/24 11:46 Insulin Human Regular (InsuLIN R) ACHS SC 07/15/24 07:00 07/15/24 14:24 DC 07/15/24 11:51 Dextrose 50 ml UD PRN IV Blood Sugar LESS THAN 60 07/15/24 06:45 07/15/24 14:24 DC Carbidopa/Levodopa (Sinemet 25/ 100MG) 1 tab BID PO 07/15/24 10:00 07/15/24 10:33 DC Clonazepam (KlonoPIN TABLET) 2 mg HSPRN PRN PO FOR INSOMNIA 07/15/24 11:30 Patient Own Medication 40 mg DAILY PO 07/15/24 10:00 Albuterol (Ventolin Medneb) 2.5 mg Q4HPRN PRN NEB SHORTNESS OF BREATH 07/15/24 07:15 Ipratropium [place] (Atrovent Medneb) 0.5 mg Q4HPRN PRN NEB SHORTNESS OF BREATH 07/15/24 07:15 Budesonide (Pulmicort) 0.5 mg BID NEB 07/15/24 10:00 07/15/24 09:22 Carbidopa/Levodopa (Sinemet 25/ 250MG) 1 tab BID PO 07/15/24 22:00 Pantoprazole Sodium (Protonix) 40 mg DAILY IV 07/15/24 14:30 07/15/24 14:44 Vital Signs Vital Signs Date Time Temp Pulse Resp B/P (MAP) Pulse Ox O2 Delivery O2 Flow Rate FiO2 07/15/24 17:00 77 16 158/88 (111) 99 07/15/24 09:58 96.3 2.0 28 96.3 07/15/24 09:22 Room Air* Physical Exam Gen.: Patient lying in bed in no apparent distress. On supplemental oxygen. Head: Normocephalic, atraumatic. Eyes: EOMI/PERRLA. Ears: Normal hearing. Normal anatomy. Neck/trachea: Trachea midline, supple. Nose: Normal external anatomy. Mouth: Moist mucous membranes. Chest: Decreased air entry bilaterally. No wheezing or rhonchi. Cardiovascular: Positive S1, positive S2. Regular rate and rhythm. Abdomen: Positive bowel sounds in all 4 quadrants. Soft, non-tender, non- distended. : Deferred. Rectal: Deferred. Skin: Warm, dry. Intact. Extremities: 2+ radial pulses bilaterally. No lower extremity edema. Neuro: Awake, alert, oriented x3. No gross motor or sensory deficits. Cranial nerves II through XII intact. Gait not assessed. Labs/Diagnostic Data Labs Test 07/15/24 12:30 07/15/24 11:44 07/15/24 00:30 07/14/24 23:35 Range/Units Urine Color Yellow Yellow Urine Clarity Turbid H Clear Urine pH 5.5 5.0-9.0 Urine Specific [place] 1.026 1.001-1.035 Urine Protein 1+ H Negative Urine Ketones 1+ H Negative Urine Blood 1+ H Negative /uL Urine Nitrite Negative Negative Urine Bilirubin Negative Negative Urine Urobilinogen Normal Negative mg/dL Urine Leukocyte Esterase 3+ Negative /uL Urine RBC 5 0 - 3 /hpf Urine Microscopic WBC 60 H 0-3 /HPF Urine Squamous Epithelial Cells Few <5 /hpf Urine Bacteria Many H None Seen /hpf Urine Mucus Few None Seen Urine Glucose Normal Normal mg/dL POC Glucose 153 H 70-106 mg/dl Lactic Acid Level 1.2 0.4-2.0 mmol/L Troponin I High Sensitivity 7 </=54 ng/L Test 07/14/24 22:40 07/14/24 21:20 Range/Units White Blood Count 10.7 4.4-10.8 10^3/uL Red Blood Count 4.33 L 4.5-5.90 10^6/uL Hemoglobin 13.0 L 13.5-17.5 g/dL Hematocrit 38.2 L 41.0-53.0 % Mean Corpuscular Volume 88.1 80.0-100.0 fL Mean Corpuscular Hemoglobin 30.0 28.0-32.0 pg Mean Corpuscular Hemoglobin Concent 34.0 32.0-36.0 g/dL Red Cell Distribution Width 15.3 H 11.8-14.3 % Platelet Count 213 140-450 10^3/uL Mean Platelet Volume 7.5 6.9-10.8 fL Neutrophils (%) (Auto) 79.8 37.0-80.0 % Lymphocytes (%) (Auto) 11.5 10.0-50.0 % Monocytes (%) (Auto) 8.3 0.0-12.0 % Eosinophils (%) (Auto) 0.2 0.0-7.0 % Basophils (%) (Auto) 0.2 0.0-2.0 % Neutrophils # (Auto) 8.5 1.6-8.6 10 ^3/uL Lymphocytes # (Auto) 1.2 0.4-5.4 10 ^3/uL Monocytes # (Auto) 0.9 0-1.3 10 ^3/uL Eosinophils # (Auto) 0 0-0.8 10 ^3/uL Basophils # (Auto) 0 0-0.2 10 ^3/uL Nucleated Red Blood Cells 0.0 % Sodium Level 142 136-145 mmol/L Potassium Level 3.7 3.5-5.1 mmol/L Chloride Level 107 98-107 mmol/L Carbon Dioxide Level 25 20-31 mmol/L Anion Gap 10 5-15 Blood Urea Nitrogen 25 H 9-23 mg/dL Creatinine 0.83 0.700-1.30 mg/dL Glomerular Filtration Rate Calc 85 >90 mL/min BUN/Creatinine Ratio 30.1 H 10.0-20.0 Serum Glucose 151 H 74-106 mg/dL Hemoglobin A1c 5.5 <5.7 % A1C Calcium Level 9.8 8.7-10.4 mg/dL Total Bilirubin 1.2 H 0.2-1.0 mg/dL Aspartate Amino Transferase (AST) 23 13-40 U/L Alanine Aminotransferase (ALT) 19 7-40 U/L Alkaline Phosphatase 75 46-116 U/L Ammonia 12 11-32 umol/L Total Protein 6.9 5.7-8.2 g/dL Albumin 3.8 3.2-4.8 g/dL Carcinoembryonic Antigen 0.78 <=5.0 ng/mL Influenza Type A Antigen Negative Negative Influenza Type B Antigen Negative Negative SARS-CoV-2 Antigen (Rapid) Negative NEGATIVE Assessment Impression: Acute hypoxic respiratory failure Dependence on supplemental oxygen Dyspnea on exertion Chronic obstructive pulmonary disease ? Left lower lobe mass Pneumonia Chronic cough Epididymitis Complicated cystitis Cachexia, BMI 17.2 Plan: Supplemental oxygen Titrate to keep O2 sats above 92%. Bronchodilators/Pulmicort. Continue antibiotics CT chest demonstrated patchy nodular basilar disease with mass-like airspace opacity in the left lower lobe. Testicular ultrasound revealed epididymitis, small bilateral hydroceles and right testicular microlithiasis Monitor renal function. Monitor electrolytes. Supplement as necessary. Monitor ins and outs. Accu-Cheks, ISS. GI prophylaxis - Protonix DVT prophylaxis - Lovenox. Prognosis: Poor given patient's multiple co-morbidities. Rest of plan per hospitalist and other consultants. Thank you, NEIDA Calloway, for allowing me to participate in this patient's care. Further recommendations will depend on the patient's clinical course. Please do not hesitate to contact me if you have any questions or concerns. This medical document was created using an electronic medical record system with [employer] dictation system. Although these documentations are being carefully reviewed, there may still be some phonetic and typographical changes. The errors are purely typographical, due to imperfection on the software program, and do not reflect any compromise in the patient's medical care. Plan discussed with: Daughter, Other (RN/NEIDA Calloway/) HARMONY PENG MD Jul 15, 2024 19:43
[2024-07-15] MEDS: CARBIDOPA W LEVODOPA 25/250mg TABLET PO SCH (22:30)
[2024-07-16] VITALS (11 sets, daily range): BP systolic 111–167; BP diastolic 65–119; PULSE 51–74; RESP 12–19; TEMP 97.2–98.3; O2SAT 94–100
[2024-07-16] MEDS: IPRATROPIUM BROM 0.5 MG/2.5ML INH SOL NEB PRN (07:13)
[2024-07-16] MEDS: ALBUTEROL SULF 2.5 MG/0.5ML(0.5%) NEB SOLN NEB PRN (07:13)
[2024-07-16 07:48] LABS: Alkaline Phosphatase 61 U/L (46-116); Anion Gap 7 (5-15); BUN/Creatinine Ratio 28.1 (10.0-20.0); Blood Urea Nitrogen 18 mg/dL (9-23); Calcium 9.2 mg/dL (8.7-10.4); Carbon Dioxide 27 mmol/L (20-31); Glucose 101 mg/dL (74-106); Sodium 142 mmol/L (136-145)
[2024-07-16 07:49] LABS: Alanine Aminotransferase < 9 U/L (7-40); Albumin 3.1 g/dL (3.2-4.8); Aspartate Aminotransferase 12 U/L (13-40); Bilirubin, Total 1.2 mg/dL (0.2-1.0); Chloride 108 mmol/L (98-107); Potassium 3.4 mmol/L (3.5-5.1)
[2024-07-16 07:53] LABS: Basophils # (auto) 0 10 ^3/uL (0-0.2); Basophils % (auto) 0.2 % (0.0-2.0); Eosinophils # (auto) 0.1 10 ^3/uL (0-0.8); Eosinophils % (auto) 0.7 % (0.0-7.0); Hematocrit 33.5 % (41.0-53.0); Hemoglobin 11.6 g/dL (13.5-17.5); Lymphocytes # (auto) 0.8 10 ^3/uL (0.4-5.4); Lymphocytes % (auto) 10.8 % (10.0-50.0); Mean Corpuscular Hemoglobin 30.6 pg (28.0-32.0); Mean Corpuscular Hgb Conc. 34.6 g/dL (32.0-36.0); Mean Corpuscular Volume 88.4 fL (80.0-100.0); Monocytes # (auto) 0.7 10 ^3/uL (0-1.3); Monocytes % (auto) 8.5 % (0.0-12.0); Neutrophils # (auto) 6.2 10 ^3/uL (1.6-8.6); Neutrophils % (auto) 79.8 % (37.0-80.0); Platelet Count (auto) 189 10^3/uL (140-450); Red Blood Cells 3.78 10^6/uL (4.5-5.90); White Blood Cell 7.7 10^3/uL (4.4-10.8)
[2024-07-16] MEDS: AZITHROMYCIN 500MG/ 250ML 250 ML IV SCH (08:50)
[2024-07-16] MEDS: cefTRIAXone 1GM/50ML D5W 50 ML IV SCH (08:50)
--- NOTE | 2024-07-16 10:17 | DVHPN2 ---
Subjective Patient was states that his has improved. Reviewed: Care Plan, H&P, Labs, Medications Changes from previous H/P or p: No Changes General: Per HPI ENT: Throat pain Respiratory: Cough, Sputum Objective Vitals Vital Signs Date Time Temp Pulse Resp B/P (MAP) Pulse Ox O2 Delivery O2 Flow Rate FiO2 07/16/24 09:00 97.2 54 16 111/65 (80) 98 97.2 07/16/24 07:13 Nasal Cannula 2.0 07/16/24 07:13 28 Intake/Output Intake and Output 07/16/24 07:00 Intake Total 200 ml Output Total 0 ml Balance 200 ml Intake Oral 200 ml Output Urine Total 0 ml General Appearance: Alert, Oriented X3, Cooperative, No acute distress HEENT: Atraumatic, PERRLA Lungs: Clear to auscultation, Normal air movement Cardiovascular: Normal S1, Normal S2 Abdomen: Normal bowel sounds Musculoskeletal: Normal sensory function, Normal motor function Skin: Dry, Intact Psych/Mental Status: Mental status NL, Mood NL Medications Current Medications Medications Dose Ordered Sig/Willam Route Start Time Stop Time Status Last Admin Dose Admin Azithromycin 250 ml @ 125 mls/hr DAILY IV 07/16/24 10:00 07/16/24 08:50 125 MLS/HR Ceftriaxone Sodium 50 ml @ 100 mls/hr DAILY@09 IV 07/16/24 09:00 07/16/24 08:50 100 MLS/HR Ondansetron HCl 4 mg Q4HP PRN IV 07/15/24 06:45 Enoxaparin Sodium 30 mg DAILY SC 07/15/24 10:00 07/16/24 08:49 30 MG Acetaminophen 650 mg Q6HP PRN PO 07/15/24 06:45 Clonazepam 2 mg HSPRN PRN PO 07/15/24 11:30 Patient Own Medication 40 mg DAILY PO 07/15/24 10:00 Albuterol 2.5 mg Q4HPRN PRN NEB 07/15/24 07:15 07/16/24 07:13 2.5 MG Ipratropium [place] 0.5 mg Q4HPRN PRN NEB 07/15/24 07:15 07/16/24 07:13 0.5 MG Budesonide 0.5 mg BID NEB 07/15/24 10:00 07/16/24 07:13 0.5 MG Carbidopa/Levodopa 1 tab BID PO 07/15/24 22:00 07/16/24 09:38 1 TAB Pantoprazole Sodium 40 mg DAILY IV 07/15/24 14:30 07/16/24 08:49 40 MG Laboratory Results Laboratory Tests 07/16/24 06:48 Chemistry Test 07/16/24 06:48 Albumin 3.1 g/dL (3.2-4.8) L Calcium Level 9.2 mg/dL (8.7-10.4) Total Protein 6.0 g/dL (5.7-8.2) LFT Test 07/16/24 06:48 Alanine Aminotransferase (ALT) < 9 U/L (7-40) Alkaline Phosphatase 61 U/L (46-116) Aspartate Amino Transferase (AST) 12 U/L (13-40) L Total Bilirubin 1.2 mg/dL (0.2-1.0) H Urinalysis Test 07/15/24 12:30 Urine Color Yellow (Yellow) Urine Clarity Turbid (Clear) H Urine pH 5.5 (5.0-9.0) Urine Specific [place] 1.026 (1.001-1.035) Urine Protein 1+ (Negative) H Urine Ketones 1+ (Negative) H Urine Blood 1+ /uL (Negative) H Urine Nitrite Negative (Negative) Urine Bilirubin Negative (Negative) Urine Urobilinogen Normal mg/dL (Negative) Urine Leukocyte Esterase 3+ /uL (Negative) Urine RBC 5 /hpf (0 - 3) Urine Microscopic WBC 60 /HPF (0-3) H Urine Squamous Epithelial Cells Few /hpf (<5) Urine Bacteria Many /hpf (None Seen) H Urine Mucus Few (None Seen) Urine Glucose Normal mg/dL (Normal) Labs and/or images reviewed: Labs reviewed by me, Image(s) reviewed by me Assessment/Plan Assessment/Plan Impression: -Acute hypoxic respiratory failure -probable community-acquired pneumonia -? Lung mass -epididymitis -complicated cystitis -cachexia -dementia -Parkinson's disease Plan: -O2 supplementation keep saturation greater than 90% -pulmonology consultation: Recommendations reviewed -continue antibiotic therapy with Rocephin and azithromycin -bronchodilators -continue home medications for dementia and Parkinson's disease -urine culture -nutritional supplementation -repeat labs chest x-ray in a.m. Total time spent with patient discussing and formulating plan of care: 35 minutes. This medical document was created using an electronic medical record system with [employer] dictation system. Although this document has been carefully reviewed, there may still be some phonetic and typographical errors. These areas are purely typographical due to imperfections of the software programs, and do not reflect any compromise in the patient's medical care. Plan discussed with: Patient, Other (RN) My Orders Orders - CEE PARKER NP Procedure Category Date Status Time * Staff Writer CONS 07/15/24 Transmitted Consult 20:57 Sod Chl 0.9%/ Kcl PHA 07/16/24 Logged [id number] 10:00 Basic Metabolic Panel LAB 07/17/24 Verified 04:00 Magnesium LAB 07/17/24 Verified 04:00 Thyroid Stimulating LAB 07/17/24 Verified Hormone 04:00 Urine Bacterial DRE 07/16/24 Logged Culture 09:52 Chest Xray 1 View XY 07/16/24 Logged 10:11 Date of Service: Jul 16, 2024 Billing Provider: CEE PARKER NP Common Visit Codes: [id number] INP/OBS CARE(HIGH) CEE PARKER NP Jul 16, 2024 10:17
--- NOTE | 2024-07-16 11:40 | DVH ---
EXAM: XY CHEST XRAY 1 VIEW Indication: Pain; pna Technique: Single frontal view of the chest was obtained Comparison: XY CHEST XRAY 1 VIEW on DOS: 07/14/24, XY CHEST XRAY 1 VIEW on DOS: 11/21/22 FINDINGS: Lines and Tubes: None Lungs: No focal consolidation. Pleura: No effusion. No pneumothorax. Cardiomediastinal contours: Unremarkable Bones: No acute osseous abnormality. IMPRESSION: No acute cardiopulmonary disease.
[2024-07-16] MEDS: Ensure HIGH Protein Chocolate 8oz Bottle PO SCH (12:00)
[2024-07-16] MEDS: SOD CHL 0.9%/ KCL 40MEQ 1,000 ML IV ONE (12:32)
--- NOTE | 2024-07-16 18:46 | DVHPN2 ---
Progress Note - Dictate Date Seen: Jul 16, 2024 Medical Necessity Reason Pt with a Central, PICC or Fol: No Subjective Patient seen and examined at bedside. Remains on supplemental oxygen Overnight events reviewed. vital signs Vital Sign Date Time Temp Pulse Resp B/P (MAP) Pulse Ox O2 Delivery O2 Flow Rate FiO2 07/16/24 16:48 97.4 66 16 145/79 (101) 100 97.4 07/16/24 07:13 Nasal Cannula 2.0 07/16/24 07:13 28 Total Intake and Output 07/15/24 07/15/24 07/16/24 15:00 23:00 07:00 Intake Total 200 ml Output Total 0 ml Balance 200 ml medications Current Medications Medications Dose Ordered Sig/Willam Route Start Time Stop Time Status Last Admin Dose Admin Azithromycin 250 ml @ 125 mls/hr DAILY IV 07/16/24 10:00 07/16/24 08:50 125 MLS/HR Ceftriaxone Sodium 50 ml @ 100 mls/hr DAILY@09 IV 07/16/24 09:00 07/16/24 08:50 100 MLS/HR Ondansetron HCl 4 mg Q4HP PRN IV 07/15/24 06:45 Enoxaparin Sodium 30 mg DAILY SC 07/15/24 10:00 07/16/24 08:49 30 MG Acetaminophen 650 mg Q6HP PRN PO 07/15/24 06:45 Clonazepam 2 mg HSPRN PRN PO 07/15/24 11:30 Patient Own Medication 40 mg DAILY PO 07/15/24 10:00 Albuterol 2.5 mg Q4HPRN PRN NEB 07/15/24 07:15 07/16/24 07:13 2.5 MG Ipratropium [place] 0.5 mg Q4HPRN PRN NEB 07/15/24 07:15 07/16/24 07:13 0.5 MG Budesonide 0.5 mg BID NEB 07/15/24 10:00 07/16/24 07:13 0.5 MG Carbidopa/Levodopa 1 tab BID PO 07/15/24 22:00 07/16/24 09:38 1 TAB Pantoprazole Sodium 40 mg DAILY IV 07/15/24 14:30 07/16/24 08:49 40 MG Enteral Nutritional Formula 240 ml TIDWM PO 07/16/24 12:00 07/16/24 12:00 240 ML objective Gen.: Patient lying in bed in no apparent distress. On supplemental oxygen. Head: Normocephalic, atraumatic. Eyes: EOMI/PERRLA. Ears: Normal hearing. Normal anatomy. Neck/trachea: Trachea midline, supple. Nose: Normal external anatomy. Mouth: Moist mucous membranes. Chest: Decreased air entry bilaterally. No wheezing or rhonchi. Cardiovascular: Positive S1, positive S2. Regular rate and rhythm. Abdomen: Positive bowel sounds in all 4 quadrants. Soft, non-tender, non- distended. : Deferred. Rectal: Deferred. Skin: Warm, dry. Intact. Extremities: 2+ radial pulses bilaterally. No lower extremity edema. Neuro: Awake, alert, oriented x3. No gross motor or sensory deficits. Cranial nerves II through XII intact. Gait not assessed. laboratory and microbiology Laboratory Tests 07/16/24 06:48 Test 07/16/24 06:48 Range/Units Serum Glucose 101 74-106 mg/dL Assessment/Plan Impression: Acute hypoxic respiratory failure Dependence on supplemental oxygen Dyspnea on exertion Chronic obstructive pulmonary disease ? Left lower lobe mass Pneumonia Chronic cough Epididymitis Complicated cystitis Cachexia, BMI 17.2 Events: Remains on supplemental oxygen, 2 LPM NC Taper O2 as tolerated Continue bronchodilators/Pulmicort Continue antibiotics PT evaluation IV fluids at 100 ml/hr Monitor renal function Monitor ins and outs Obtain CXR in AM to assess for interval changes. Labs and imaging reviewed. Rest of plan as noted below. Plan: Supplemental oxygen Titrate to keep O2 sats above 92%. Bronchodilators/Pulmicort. Continue antibiotics CT chest demonstrated patchy nodular basilar disease with mass-like airspace opacity in the left lower lobe. Testicular ultrasound revealed epididymitis, small bilateral hydroceles and right testicular microlithiasis. Monitor renal function. Monitor electrolytes. Supplement as necessary. Monitor ins and outs. Accu-Cheks. GI prophylaxis - Protonix DVT prophylaxis - Lovenox. Prognosis: Poor given patient's multiple co-morbidities. Rest of plan per hospitalist and other consultants. Thank you, NEIDA Calloway, for allowing me to participate in this patient's care. Further recommendations will depend on the patient's clinical course. Please do not hesitate to contact me if you have any questions or concerns. This medical document was created using an electronic medical record system with [employer] computerized dictation system. Although these documentations are being carefully reviewed, there may still be some phonetic and typographical changes. The errors are purely typographical, due to imperfection on the software program, and do not reflect any compromise in the patient's medical care. Dietary Evaluation Review Recommendations by RD: Increase Calorie Intake, Protein Supplementation Comments: 1) Liberalixing diet to 2gm Na 2) Ensure Enlive 240ml TID (ordered per protocol) 3) MVI 1 tba daily 4) Continue current plan of care Expected Outcomes/Goals: Pt will meet >75% estimated needs Fu 3-5 days Food and Nutrition Intake (Sev: <50% est energy req 5days Body Fat Depletion (Severe): Mod to Severe Depletion Muscle Mass (Severe): Mod to Severe Depletion Protein Calorie Malnutrition: Severe Is there a minimum of two crit: Yes Plan discussed with: Patient, Other (NORRIS Sagastume) HARMONY PENG MD Jul 16, 2024 18:46
[2024-07-17] VITALS (10 sets, daily range): BP systolic 132–150; BP diastolic 69–94; PULSE 50–76; RESP 6–20; TEMP 97.4–98.1; O2SAT 94–100
[2024-07-17 08:39] LABS: Anion Gap 8 (5-15); Carbon Dioxide 24 mmol/L (20-31); Potassium 3.9 mmol/L (3.5-5.1); Sodium 140 mmol/L (136-145)
[2024-07-17 08:40] LABS: Calcium 9.4 mg/dL (8.7-10.4)
[2024-07-17 08:41] LABS: Chloride 108 mmol/L (98-107)
[2024-07-17 08:44] LABS: Glucose 102 mg/dL (74-106)
[2024-07-17 08:45] LABS: BUN/Creatinine Ratio 24.2 (10.0-20.0); Blood Urea Nitrogen 15 mg/dL (9-23); Magnesium 1.8 mg/dL (1.6-2.6)
--- NOTE | 2024-07-17 09:14 | DVH ---
EXAM: XY CHEST PORTABLE Indication: Pain; PNA Technique: Single frontal view of the chest was obtained Comparison: XY CHEST XRAY 1 VIEW on DOS: 07/16/24, XY CHEST XRAY 1 VIEW on DOS: 07/14/24, XY CHEST XRAY 1 VIEW on DOS: 11/21/22 FINDINGS: Lines and Tubes: None Lungs: No focal consolidation. Pleura: No effusion. No pneumothorax. Cardiomediastinal contours: Unremarkable Bones: No acute osseous abnormality. IMPRESSION: No acute cardiopulmonary disease.
[2024-07-17] MEDS: Ensure Enlive Vanilla 8oz Bottle PO SCH (14:22)
--- NOTE | 2024-07-17 16:32 | DVHPN2 ---
Subjective Continues to have weakness. Reports that his breathing has improved. Reviewed: Care Plan, H&P, Labs, Medications Changes from previous H/P or p: No Changes General: Per HPI ENT: Throat pain Respiratory: Cough, Sputum Objective Vitals Vital Signs Date Time Temp Pulse Resp B/P (MAP) Pulse Ox O2 Delivery O2 Flow Rate FiO2 07/17/24 16:30 97.8 75 16 135/83 (100) 95 97.8 07/17/24 06:40 Room Air 0.0 07/17/24 06:40 21 Intake/Output Intake and Output 07/17/24 07:00 Intake Total 1200 ml Output Total 400 ml Balance 800 ml Intake Oral 900 ml IV Total 300 ml Output Urine Total 400 ml General Appearance: Alert, Oriented X3, Cooperative, No acute distress HEENT: Atraumatic, PERRLA Lungs: Clear to auscultation, Normal air movement Cardiovascular: Normal S1, Normal S2 Abdomen: Normal bowel sounds Musculoskeletal: Normal sensory function, Normal motor function Skin: Dry, Intact Psych/Mental Status: Mental status NL, Mood NL Medications Current Medications Medications Dose Ordered Sig/Willam Route Start Time Stop Time Status Last Admin Dose Admin Azithromycin 250 ml @ 125 mls/hr DAILY IV 07/16/24 10:00 07/17/24 14:21 125 MLS/HR Ceftriaxone Sodium 50 ml @ 100 mls/hr DAILY@09 IV 07/16/24 09:00 07/17/24 09:46 100 MLS/HR Ondansetron HCl 4 mg Q4HP PRN IV 07/15/24 06:45 Enoxaparin Sodium 30 mg DAILY SC 07/15/24 10:00 07/17/24 09:47 30 MG Acetaminophen 650 mg Q6HP PRN PO 07/15/24 06:45 Clonazepam 2 mg HSPRN PRN PO 07/15/24 11:30 Patient Own Medication 40 mg DAILY PO 07/15/24 10:00 Albuterol 2.5 mg Q4HPRN PRN NEB 07/15/24 07:15 07/16/24 07:13 2.5 MG Ipratropium [place] 0.5 mg Q4HPRN PRN NEB 07/15/24 07:15 07/16/24 07:13 0.5 MG Budesonide 0.5 mg BID NEB 07/15/24 10:00 07/17/24 06:40 0.5 MG Carbidopa/Levodopa 1 tab BID PO 07/15/24 22:00 07/17/24 09:46 1 TAB Pantoprazole Sodium 40 mg DAILY IV 07/15/24 14:30 07/17/24 09:46 40 MG Multivitamins/ Minerals 1 tab DAILY PO 07/18/24 10:00 Enteral Nutritional Formula 240 ml TID PO 07/17/24 14:00 07/17/24 14:22 240 ML Laboratory Results Laboratory Tests 07/16/24 06:48 07/17/24 07:04 Chemistry Test 07/17/24 07:04 Calcium Level 9.4 mg/dL (8.7-10.4) Magnesium Level 1.8 mg/dL (1.6-2.6) HgA1c, TSH Test 07/17/24 07:04 Thyroid Stimulating Hormone (TSH) 2.17 uIU/mL (0.55-4.78) Urinalysis Test 07/15/24 12:30 Urine Color Yellow (Yellow) Urine Clarity Turbid (Clear) H Urine pH 5.5 (5.0-9.0) Urine Specific [place] 1.026 (1.001-1.035) Urine Protein 1+ (Negative) H Urine Ketones 1+ (Negative) H Urine Blood 1+ /uL (Negative) H Urine Nitrite Negative (Negative) Urine Bilirubin Negative (Negative) Urine Urobilinogen Normal mg/dL (Negative) Urine Leukocyte Esterase 3+ /uL (Negative) Urine RBC 5 /hpf (0 - 3) Urine Microscopic WBC 60 /HPF (0-3) H Urine Squamous Epithelial Cells Few /hpf (<5) Urine Bacteria Many /hpf (None Seen) H Urine Mucus Few (None Seen) Urine Glucose Normal mg/dL (Normal) Microbiology Microbiology Date/Time Source Procedure Growth Status 07/15/24 12:30 Voided Urine Urine Culture - Preliminary Resulted Labs and/or images reviewed: Labs reviewed by me, Image(s) reviewed by me Assessment/Plan Assessment/Plan Impression: -Acute hypoxic respiratory failure -probable community-acquired pneumonia -? Lung mass -epididymitis -complicated cystitis -cachexia -dementia -Parkinson's disease Plan: -O2 supplementation keep saturation greater than 90% . Patient now on room air -PT consultation: Recommendations reviewed. DME ordered -pulmonology consultation: Recommendations reviewed -continue antibiotic therapy with Rocephin and azithromycin -bronchodilators -continue home medications for dementia and Parkinson's disease -urine culture -nutritional supplementation -repeat labs in a.m. -long discussion made with the patient's daughter who was bedside. All questions answered. Total time spent with patient discussing and formulating plan of care: 35 minutes. This medical document was created using an electronic medical record system with [employer] dictation system. Although this document has been carefully reviewed, there may still be some phonetic and typographical errors. These areas are purely typographical due to imperfections of the software programs, and do not reflect any compromise in the patient's medical care. Plan discussed with: Patient, Other (RN) My Orders Orders - CEE PARKER NP Procedure Category Date Status Time 2 Gm Sodium Diet DIET 07/17/24 Transmitted Lunch Multiple Vitamin W PHA 07/18/24 In Process Mineral Tab (Mvi W/ M 10:00 Nutritional PHA 07/17/24 In Process Supplements (Ensure 14:00 Date of Service: Jul 17, 2024 Billing Provider: CEE PARKER NP Common Visit Codes: [id number] INP/OBS CARE(HIGH) CEE PARKER NP Jul 17, 2024 16:32
--- NOTE | 2024-07-17 23:00 | DVHPN2 ---
Progress Note - Dictate Date Seen: Jul 17, 2024 Medical Necessity Reason Pt with a Central, PICC or Fol: No Subjective Patient seen and examined at bedside. Currently on room air. Overnight events reviewed. vital signs Vital Sign Date Time Temp Pulse Resp B/P (MAP) Pulse Ox O2 Delivery O2 Flow Rate FiO2 07/17/24 22:24 62 18 99 07/17/24 21:00 98.1 140/88 (105) 98.1 07/17/24 20:00 Room Air* 0 21 Total Intake and Output 07/16/24 07/16/24 07/17/24 14:59 22:59 06:59 Intake Total 300 ml 250 ml 650 ml Output Total 0 ml 400 ml Balance 300 ml 250 ml 250 ml medications Current Medications Medications Dose Ordered Sig/Willam Route Start Time Stop Time Status Last Admin Dose Admin Azithromycin 250 ml @ 125 mls/hr DAILY IV 07/16/24 10:00 07/17/24 14:21 125 MLS/HR Ceftriaxone Sodium 50 ml @ 100 mls/hr DAILY@09 IV 07/16/24 09:00 07/17/24 09:46 100 MLS/HR Ondansetron HCl 4 mg Q4HP PRN IV 07/15/24 06:45 Enoxaparin Sodium 30 mg DAILY SC 07/15/24 10:00 07/17/24 09:47 30 MG Acetaminophen 650 mg Q6HP PRN PO 07/15/24 06:45 Clonazepam 2 mg HSPRN PRN PO 07/15/24 11:30 Patient Own Medication 40 mg DAILY PO 07/15/24 10:00 Albuterol 2.5 mg Q4HPRN PRN NEB 07/15/24 07:15 07/17/24 22:28 2.5 MG Ipratropium [place] 0.5 mg Q4HPRN PRN NEB 07/15/24 07:15 07/17/24 22:28 0.5 MG Budesonide 0.5 mg BID NEB 07/15/24 10:00 07/17/24 22:28 0.5 MG Carbidopa/Levodopa 1 tab BID PO 07/15/24 22:00 07/17/24 21:33 1 TAB Pantoprazole Sodium 40 mg DAILY IV 07/15/24 14:30 07/17/24 09:46 40 MG Multivitamins/ Minerals 1 tab DAILY PO 07/18/24 10:00 Enteral Nutritional Formula 240 ml TID PO 07/17/24 14:00 07/17/24 21:34 240 ML objective Gen.: Patient lying in bed in no apparent distress. On room air. Head: Normocephalic, atraumatic. Eyes: EOMI/PERRLA. Ears: Normal hearing. Normal anatomy. Neck/trachea: Trachea midline, supple. Nose: Normal external anatomy. Mouth: Moist mucous membranes. Chest: Decreased air entry bilaterally. Expiratory wheezing in lower lobes. No rhonchi. Cardiovascular: Positive S1, positive S2. Regular rate and rhythm. Abdomen: Positive bowel sounds in all 4 quadrants. Soft, non-tender, non- distended. : Deferred. Rectal: Deferred. Skin: Warm, dry. Intact. Extremities: 2+ radial pulses bilaterally. No lower extremity edema. Neuro: Awake, alert, oriented x3. No gross motor or sensory deficits. Cranial nerves II through XII intact. Gait not assessed. laboratory and microbiology Laboratory Tests 07/17/24 07:04 07/16/24 06:48 Test 07/17/24 07:04 Range/Units Serum Glucose 102 74-106 mg/dL Assessment/Plan Impression: Acute hypoxic respiratory failure Dyspnea on exertion Chronic obstructive pulmonary disease ? Left lower lobe mass Pneumonia Chronic cough Epididymitis Complicated cystitis Cachexia, BMI 17.2 Events: Currently on room air Supplemental oxygen, PRN Chest x-ray shows NAD. Recommend followup for lung mass. Continue bronchodilators/Pulmicort Continue antibiotics PT evaluation Labs and imaging reviewed. Rest of plan as noted below. Plan: Supplemental oxygen PRN Titrate to keep O2 sats above 92%. Bronchodilators/Pulmicort. Continue antibiotics CT chest demonstrated patchy nodular basilar disease with mass-like airspace opacity in the left lower lobe. Testicular ultrasound revealed epididymitis, small bilateral hydroceles and right testicular microlithiasis. Monitor renal function. Monitor electrolytes. Supplement as necessary. Monitor ins and outs. Accu-Cheks. GI prophylaxis - Protonix DVT prophylaxis - Lovenox. Prognosis: Poor given patient's multiple co-morbidities. Rest of plan per hospitalist and other consultants. Thank you, NEIDA Calloway, for allowing me to participate in this patient's care. Further recommendations will depend on the patient's clinical course. Please do not hesitate to contact me if you have any questions or concerns. This medical document was created using an electronic medical record system with [employer] computerized dictation system. Although these documentations are being carefully reviewed, there may still be some phonetic and typographical changes. The errors are purely typographical, due to imperfection on the software program, and do not reflect any compromise in the patient's medical care. Dietary Evaluation Review Recommendations by RD: Increase Calorie Intake, Protein Supplementation Comments: 1) Liberalixing diet to 2gm Na 2) Ensure Enlive 240ml TID (ordered per protocol) 3) MVI 1 tba daily 4) Continue current plan of care Expected Outcomes/Goals: Pt will meet >75% estimated needs Fu 3-5 days Food and Nutrition Intake (Sev: <50% est energy req 5days Body Fat Depletion (Severe): Mod to Severe Depletion Muscle Mass (Severe): Mod to Severe Depletion Protein Calorie Malnutrition: Severe Is there a minimum of two crit: Yes Plan discussed with: Patient, Other (RN) HARMONY PENG MD Jul 17, 2024 22:59
[2024-07-18] VITALS (12 sets, daily range): BP systolic 117–151; BP diastolic 52–88; PULSE 62–94; RESP 16–19; TEMP 97.5–98.3; O2SAT 90–99
[2024-07-18] MEDS: MULTIPLE VITAMINS W/ MINERALS TAB PO SCH (09:27)
--- NOTE | 2024-07-18 13:46 | DVHPN2 ---
Progress Note - Dictate Date Seen: Jul 18, 2024 Medical Necessity Reason Pt with a Central, PICC or Fol: No Subjective Patient seen and examined Overnight events reviewed vital signs Vital Sign Date Time Temp Pulse Resp B/P (MAP) Pulse Ox O2 Delivery O2 Flow Rate FiO2 07/18/24 13:07 97.8 75 18 140/83 (102) 96 97.8 07/18/24 06:16 Room Air 0.0 07/18/24 06:16 21 Total Intake and Output 07/17/24 07/17/24 07/18/24 15:00 23:00 07:00 Intake Total 550 ml 700 ml 300 ml Output Total 100 ml Balance 550 ml 600 ml 300 ml medications Current Medications Medications Dose Ordered Sig/Willam Route Start Time Stop Time Status Last Admin Dose Admin Azithromycin 250 ml @ 125 mls/hr DAILY IV 07/16/24 10:00 07/17/24 14:21 125 MLS/HR Ceftriaxone Sodium 50 ml @ 100 mls/hr DAILY@09 IV 07/16/24 09:00 07/18/24 09:26 100 MLS/HR Ondansetron HCl 4 mg Q4HP PRN IV 07/15/24 06:45 Enoxaparin Sodium 30 mg DAILY SC 07/15/24 10:00 07/18/24 13:33 30 MG Acetaminophen 650 mg Q6HP PRN PO 07/15/24 06:45 Clonazepam 2 mg HSPRN PRN PO 07/15/24 11:30 Patient Own Medication 40 mg DAILY PO 07/15/24 10:00 Albuterol 2.5 mg Q4HPRN PRN NEB 07/15/24 07:15 07/18/24 06:16 2.5 MG Ipratropium [place] 0.5 mg Q4HPRN PRN NEB 07/15/24 07:15 07/18/24 06:16 0.5 MG Budesonide 0.5 mg BID NEB 07/15/24 10:00 07/18/24 06:16 0.5 MG Carbidopa/Levodopa 1 tab BID PO 07/15/24 22:00 07/18/24 09:27 1 TAB Pantoprazole Sodium 40 mg DAILY IV 07/15/24 14:30 07/18/24 09:27 40 MG Multivitamins/ Minerals 1 tab DAILY PO 07/18/24 10:00 07/18/24 09:27 1 TAB Enteral Nutritional Formula 240 ml TID PO 07/17/24 14:00 07/17/24 21:34 240 ML laboratory and microbiology Laboratory Tests 07/17/24 07:04 07/16/24 06:48 Test 07/17/24 07:04 Range/Units Serum Glucose 102 74-106 mg/dL Assessment/Plan Impression Acute hypoxemic respiratory failure Pneumonia Atelectasis COPD Patient seen and examined Events Low oxygen requirements On room air No distress Labs and imaging reviewed CT of the chest shows patchy nodular basilar disease with mass-like airspace opacity in the left lower lobe. Testicular ultrasound revealed epididymitis, small bilateral hydroceles and right testicular microlithiasis. Management Supplemental oxygen as needed Titrate to maintain sats 90% or above Incentive spirometry Continue antibiotics F/u cultures Bronchodilators Monitor renal function Monitor electrolytes Supplement as needed DVT prophylaxis Dietary Evaluation Review Recommendations by RD: Increase Calorie Intake, Protein Supplementation Comments: 1) Liberalixing diet to 2gm Na 2) Ensure Enlive 240ml TID (ordered per protocol) 3) MVI 1 tba daily 4) Continue current plan of care Expected Outcomes/Goals: Pt will meet >75% estimated needs Fu 3-5 days Food and Nutrition Intake (Sev: <50% est energy req 5days Body Fat Depletion (Severe): Mod to Severe Depletion Muscle Mass (Severe): Mod to Severe Depletion Protein Calorie Malnutrition: Severe Is there a minimum of two crit: Yes Plan discussed with: Patient KATHIA SHARP MD Jul 18, 2024 13:46
[2024-07-18] MEDS ORDERED: ERTAPENEM SOD 1 GM INJ VIAL IM SCH (16:00)
--- NOTE | 2024-07-18 16:11 | DVHPN2 ---
Subjective Continues to have weakness. Reports that his breathing has improved. Reviewed: Care Plan, H&P, Labs, Medications Changes from previous H/P or p: No Changes General: Per HPI ENT: Throat pain Respiratory: Cough, Sputum Objective Vitals Vital Signs Date Time Temp Pulse Resp B/P (MAP) Pulse Ox O2 Delivery O2 Flow Rate FiO2 07/18/24 13:07 97.8 75 18 140/83 (102) 96 97.8 07/18/24 06:16 Room Air 0.0 07/18/24 06:16 21 Intake/Output Intake and Output 07/18/24 07:00 Intake Total 1550 ml Output Total 100 ml Balance 1450 ml Intake Oral 1000 ml IV Total 550 ml Output Urine Total 100 ml # Bowel Movements 2 General Appearance: Alert, Oriented X3, Cooperative, No acute distress HEENT: Atraumatic, PERRLA Lungs: Clear to auscultation, Normal air movement Cardiovascular: Normal S1, Normal S2 Abdomen: Normal bowel sounds Musculoskeletal: Normal sensory function, Normal motor function Skin: Dry, Intact Psych/Mental Status: Mental status NL, Mood NL Medications Current Medications Medications Dose Ordered Sig/Willam Route Start Time Stop Time Status Last Admin Dose Admin Ondansetron HCl 4 mg Q4HP PRN IV 07/15/24 06:45 Enoxaparin Sodium 30 mg DAILY SC 07/15/24 10:00 07/18/24 13:33 30 MG Acetaminophen 650 mg Q6HP PRN PO 07/15/24 06:45 Clonazepam 2 mg HSPRN PRN PO 07/15/24 11:30 Patient Own Medication 40 mg DAILY PO 07/15/24 10:00 Albuterol 2.5 mg Q4HPRN PRN NEB 07/15/24 07:15 07/18/24 06:16 2.5 MG Ipratropium [place] 0.5 mg Q4HPRN PRN NEB 07/15/24 07:15 07/18/24 06:16 0.5 MG Budesonide 0.5 mg BID NEB 07/15/24 10:00 07/18/24 06:16 0.5 MG Carbidopa/Levodopa 1 tab BID PO 07/15/24 22:00 07/18/24 09:27 1 TAB Pantoprazole Sodium 40 mg DAILY IV 07/15/24 14:30 07/18/24 09:27 40 MG Multivitamins/ Minerals 1 tab DAILY PO 07/18/24 10:00 07/18/24 09:27 1 TAB Enteral Nutritional Formula 240 ml TID PO 07/17/24 14:00 07/18/24 15:59 240 ML Ertapenem 1 gm DAILY IM 07/18/24 16:00 Laboratory Results Laboratory Tests 07/16/24 06:48 07/17/24 07:04 Urinalysis Test 07/15/24 12:30 Urine Color Yellow (Yellow) Urine Clarity Turbid (Clear) H Urine pH 5.5 (5.0-9.0) Urine Specific [place] 1.026 (1.001-1.035) Urine Protein 1+ (Negative) H Urine Ketones 1+ (Negative) H Urine Blood 1+ /uL (Negative) H Urine Nitrite Negative (Negative) Urine Bilirubin Negative (Negative) Urine Urobilinogen Normal mg/dL (Negative) Urine Leukocyte Esterase 3+ /uL (Negative) Urine RBC 5 /hpf (0 - 3) Urine Microscopic WBC 60 /HPF (0-3) H Urine Squamous Epithelial Cells Few /hpf (<5) Urine Bacteria Many /hpf (None Seen) H Urine Mucus Few (None Seen) Urine Glucose Normal mg/dL (Normal) Microbiology Microbiology Date/Time Source Procedure Growth Status 07/15/24 12:30 Voided Urine Urine Culture - Final Escherichia coli - ESBL Complete Labs and/or images reviewed: Labs reviewed by me, Image(s) reviewed by me Assessment/Plan Assessment/Plan Impression: -Acute hypoxic respiratory failure -probable community-acquired pneumonia -? Lung mass -epididymitis -complicated cystitis -cachexia -dementia -Parkinson's disease Plan: Events: Patient positive for ESBL. -change antibiotic therapy to ertapenem -PT consultation: Recommendations reviewed. DME ordered -pulmonology consultation: Recommendations reviewed -midline placement -bronchodilators -continue home medications for dementia and Parkinson's disease -urine culture -nutritional supplementation -repeat labs in a.m. Total time spent with patient discussing and formulating plan of care: 35 minutes. This medical document was created using an electronic medical record system with [employer]ation system. Although this document has been carefully reviewed, there may still be some phonetic and typographical errors. These areas are purely typographical due to imperfections of the software programs, and do not reflect any compromise in the patient's medical care. Plan discussed with: Patient, Other (Rn) My Orders Orders - CEE PARKER NP Procedure Category Date Status Time Dme: Walker DME 07/17/24 Transmitted 16:29 * Radio Frequency Technician CONS 07/17/24 Transmitted Consult Ertapenem Sod Inj PHA 07/18/24 In Process (Invanz) 16:00 Insert Midline ORDERS 07/18/24 Transmitted 15:48 Date of Service: Jul 18, 2024 Billing Provider: CEE PARKER NP Common Visit Codes: [id number] INP/OBS CARE(HIGH) CEE PARKER NP Jul 18, 2024 16:10
[2024-07-18] MEDS: ERTAPENEM SOD 1 GM INJ VIAL IV ONE (18:37)
[2024-07-19] VITALS (10 sets, daily range): BP systolic 127–143; BP diastolic 70–89; PULSE 70–87; RESP 14–18; TEMP 97.4–98.9; O2SAT 93–100
[2024-07-19] MEDS ORDERED: ERTAPENEM SOD 1 GM INJ VIAL IV SCH (10:00)
[2024-07-19] MEDS: ERTAPENEM SOD INJ 1 GM in SODIUM CHL 0.9% 50 ML IV SCH (10:56)
--- NOTE | 2024-07-19 14:07 | DVHPN2 ---
Progress Note - Dictate Date Seen: Jul 19, 2024 Medical Necessity Reason Pt with a Central, PICC or Fol: No Subjective Patient seen and examined Overnight events reviewed vital signs Vital Sign Date Time Temp Pulse Resp B/P (MAP) Pulse Ox O2 Delivery O2 Flow Rate FiO2 07/19/24 13:00 97.6 84 16 131/82 (98) 96 97.6 07/19/24 08:00 Room Air* 0 21 Total Intake and Output 07/18/24 07/18/24 07/19/24 14:59 22:59 06:59 Intake Total 420 ml Balance 420 ml medications Current Medications Medications Dose Ordered Sig/Willam Route Start Time Stop Time Status Last Admin Dose Admin Ondansetron HCl 4 mg Q4HP PRN IV 07/15/24 06:45 Enoxaparin Sodium 30 mg DAILY SC 07/15/24 10:00 07/19/24 10:56 30 MG Acetaminophen 650 mg Q6HP PRN PO 07/15/24 06:45 Clonazepam 2 mg HSPRN PRN PO 07/15/24 11:30 Patient Own Medication 40 mg DAILY PO 07/15/24 10:00 Albuterol 2.5 mg Q4HPRN PRN NEB 07/15/24 07:15 07/18/24 06:16 2.5 MG Ipratropium [place] 0.5 mg Q4HPRN PRN NEB 07/15/24 07:15 07/18/24 06:16 0.5 MG Budesonide 0.5 mg BID NEB 07/15/24 10:00 07/19/24 06:48 0.5 MG Carbidopa/Levodopa 1 tab BID PO 07/15/24 22:00 07/19/24 10:56 1 TAB Pantoprazole Sodium 40 mg DAILY IV 07/15/24 14:30 07/19/24 10:55 40 MG Multivitamins/ Minerals 1 tab DAILY PO 07/18/24 10:00 07/19/24 10:55 1 TAB Enteral Nutritional Formula 240 ml TID PO 07/17/24 14:00 07/18/24 22:00 240 ML Ertapenem 1 gm/ Sodium Chloride 50 ml @ 100 mls/hr DAILY IV 07/19/24 10:45 07/19/24 10:56 100 MLS/HR laboratory and microbiology Laboratory Tests 07/17/24 07:04 07/16/24 06:48 Test 07/17/24 07:04 Range/Units Serum Glucose 102 74-106 mg/dL Assessment/Plan Impression Acute hypoxemic respiratory failure Pneumonia Atelectasis COPD Patient seen and examined Events Low oxygen requirements On room air No distress Labs and imaging reviewed CT of the chest shows patchy nodular basilar disease with mass-like airspace opacity in the left lower lobe. Testicular ultrasound revealed epididymitis, small bilateral hydroceles and right testicular microlithiasis. Management Supplemental oxygen as needed Titrate to maintain sats 90% or above Incentive spirometry Continue antibiotics F/u cultures Bronchodilators Monitor renal function Monitor electrolytes Supplement as needed DVT prophylaxis Dietary Evaluation Review Recommendations by RD: Increase Calorie Intake, Protein Supplementation Comments: 1) Liberalixing diet to 2gm Na 2) Ensure Enlive 240ml TID (ordered per protocol) 3) MVI 1 tba daily 4) Continue current plan of care Expected Outcomes/Goals: Pt will meet >75% estimated needs Fu 3-5 days Food and Nutrition Intake (Sev: <50% est energy req 5days Body Fat Depletion (Severe): Mod to Severe Depletion Muscle Mass (Severe): Mod to Severe Depletion Protein Calorie Malnutrition: Severe Is there a minimum of two crit: Yes Plan discussed with: Other (pt) KATHIA SHARP MD Jul 19, 2024 14:07
--- NOTE | 2024-07-19 16:00 | DVHPN2 ---
Subjective Continues to have weakness. Reports that his breathing has improved. Reviewed: Care Plan, H&P, Labs, Medications Changes from previous H/P or p: No Changes General: Per HPI ENT: Throat pain Respiratory: Cough, Sputum Objective Vitals Vital Signs Date Time Temp Pulse Resp B/P (MAP) Pulse Ox O2 Delivery O2 Flow Rate FiO2 07/19/24 13:00 97.6 84 16 131/82 (98) 96 97.6 07/19/24 08:00 Room Air* 0 21 Intake/Output Intake and Output 07/19/24 07:00 Intake Total 420 ml Balance 420 ml Intake Oral 420 ml General Appearance: Alert, Oriented X3, Cooperative, No acute distress HEENT: Atraumatic, PERRLA Lungs: Clear to auscultation, Normal air movement Cardiovascular: Normal S1, Normal S2 Abdomen: Normal bowel sounds Musculoskeletal: Normal sensory function, Normal motor function Skin: Dry, Intact Psych/Mental Status: Mental status NL, Mood NL Medications Current Medications Medications Dose Ordered Sig/Willam Route Start Time Stop Time Status Last Admin Dose Admin Ondansetron HCl 4 mg Q4HP PRN IV 07/15/24 06:45 Enoxaparin Sodium 30 mg DAILY SC 07/15/24 10:00 07/19/24 10:56 30 MG Acetaminophen 650 mg Q6HP PRN PO 07/15/24 06:45 Clonazepam 2 mg HSPRN PRN PO 07/15/24 11:30 Patient Own Medication 40 mg DAILY PO 07/15/24 10:00 Albuterol 2.5 mg Q4HPRN PRN NEB 07/15/24 07:15 07/18/24 06:16 2.5 MG Ipratropium [employer] 0.5 mg Q4HPRN PRN NEB 07/15/24 07:15 07/18/24 06:16 0.5 MG Budesonide 0.5 mg BID NEB 07/15/24 10:00 07/19/24 06:48 0.5 MG Carbidopa/Levodopa 1 tab BID PO 07/15/24 22:00 07/19/24 10:56 1 TAB Pantoprazole Sodium 40 mg DAILY IV 07/15/24 14:30 07/19/24 10:55 40 MG Multivitamins/ Minerals 1 tab DAILY PO 07/18/24 10:00 07/19/24 10:55 1 TAB Enteral Nutritional Formula 240 ml TID PO 07/17/24 14:00 07/19/24 14:29 240 ML Ertapenem 1 gm/ Sodium Chloride 50 ml @ 100 mls/hr DAILY IV 07/19/24 10:45 07/19/24 10:56 100 MLS/HR Laboratory Results Laboratory Tests 07/16/24 06:48 07/17/24 07:04 Urinalysis Test 07/15/24 12:30 Urine Color Yellow (Yellow) Urine Clarity Turbid (Clear) H Urine pH 5.5 (5.0-9.0) Urine Specific [place] 1.026 (1.001-1.035) Urine Protein 1+ (Negative) H Urine Ketones 1+ (Negative) H Urine Blood 1+ /uL (Negative) H Urine Nitrite Negative (Negative) Urine Bilirubin Negative (Negative) Urine Urobilinogen Normal mg/dL (Negative) Urine Leukocyte Esterase 3+ /uL (Negative) Urine RBC 5 /hpf (0 - 3) Urine Microscopic WBC 60 /HPF (0-3) H Urine Squamous Epithelial Cells Few /hpf (<5) Urine Bacteria Many /hpf (None Seen) H Urine Mucus Few (None Seen) Urine Glucose Normal mg/dL (Normal) Microbiology Microbiology Date/Time Source Procedure Growth Status 07/15/24 12:30 Voided Urine Urine Culture - Final Escherichia coli - ESBL Complete Labs and/or images reviewed: Labs reviewed by me, Image(s) reviewed by me Assessment/Plan Assessment/Plan Impression: -Acute hypoxic respiratory failure -probable community-acquired pneumonia -? Lung mass -epididymitis -complicated cystitis -cachexia -dementia -Parkinson's disease Plan: Events: Patient positive for ESBL. Discussed plan of care with the patient was daughter was bedside. They are wishing the patient to be discharged home with home health services. Patient may have challenges getting home health services given that he lives in [place]. Patient was family is willing to learn how to give IV Invanz daily via midline. -change antibiotic therapy to ertapenem -PT consultation: Recommendations reviewed. DME ordered -pulmonology consultation: Recommendations reviewed -midline placement -bronchodilators -continue home medications for dementia and Parkinson's disease -urine culture -nutritional supplementation -repeat labs in a.m. Total time spent with patient discussing and formulating plan of care: 35 minutes. This medical document was created using an electronic medical record system with [employer] dictation system. Although this document has been carefully reviewed, there may still be some phonetic and typographical errors. These areas are purely typographical due to imperfections of the software programs, and do not reflect any compromise in the patient's medical care. Plan discussed with: Patient, Daughter, Other (RN) My Orders Orders - CEE PARKER NP Procedure Category Date Status Time Ertapenem Sod Inj PHA 07/19/24 In Process (Invanz) 10:45 Basic Metabolic Panel LAB 07/19/24 Logged 15:50 Complete Blood Count LAB 07/19/24 Logged 15:50 Date of Service: Jul 19, 2024 Billing Provider: CEE PARKER NP Common Visit Codes: [id number] INP/OBS CARE(HIGH) Secondary Visit Codes: [id number] CARE PLAN 30 MINUTES CEE PARKER NP Jul 19, 2024 16:00
[2024-07-19 16:36] LABS: Basophils # (auto) 0 10 ^3/uL (0-0.2); Basophils % (auto) 0.2 % (0.0-2.0); Eosinophils # (auto) 0.1 10 ^3/uL (0-0.8); Hemoglobin 12.8 g/dL (13.5-17.5); Lymphocytes # (auto) 1.4 10 ^3/uL (0.4-5.4); Lymphocytes % (auto) 24.5 % (10.0-50.0); Mean Corpuscular Hemoglobin 29.6 pg (28.0-32.0); Mean Corpuscular Hgb Conc. 33.6 g/dL (32.0-36.0); Mean Corpuscular Volume 88.2 fL (80.0-100.0); Monocytes # (auto) 0.7 10 ^3/uL (0-1.3); Monocytes % (auto) 12.1 % (0.0-12.0); Neutrophils # (auto) 3.6 10 ^3/uL (1.6-8.6); Neutrophils % (auto) 61.2 % (37.0-80.0); Nucleated Red Blood Cells % 0.1 %; Platelet Count (auto) 223 10^3/uL (140-450); Red Blood Cells 4.32 10^6/uL (4.5-5.90); Red Cell Distribution Width 14.7 % (11.8-14.3); White Blood Cell 5.9 10^3/uL (4.4-10.8)
[2024-07-19 16:45] LABS: Chloride 103 mmol/L (98-107); Potassium 4.4 mmol/L (3.5-5.1); Sodium 139 mmol/L (136-145)
[2024-07-19 16:46] LABS: Anion Gap 6 (5-15); Calcium 9.6 mg/dL (8.7-10.4); Carbon Dioxide 30 mmol/L (20-31)
[2024-07-19 16:51] LABS: BUN/Creatinine Ratio 30.4 (10.0-20.0); Blood Urea Nitrogen 21 mg/dL (9-23); Glucose 104 mg/dL (74-106)
[2024-07-20] VITALS (12 sets, daily range): BP systolic 115–155; BP diastolic 55–91; PULSE 52–88; RESP 13–19; TEMP 97.4–98.6; O2SAT 91–98
[2024-07-20] MEDS: ACETAMINOPHEN 325 MG TAB PO PRN (05:53)
--- NOTE | 2024-07-20 12:58 | DVHDS2 ---
Discharge Summary Date of Admission Jul 15, 2024 at 06:43 Date of Discharge: Jul 20, 2024 Admitting Diagnosis Leukocytosis secondary to UTI Labs/Diagnostic Data: Laboratory Results Test 07/19/24 16:21 07/17/24 07:04 07/16/24 06:48 07/15/24 12:30 White Blood Count 5.9 10^3/uL (4.4-10.8) Red Blood Count 4.32 10^6/uL (4.5-5.90) Hemoglobin 12.8 g/dL (13.5-17.5) Hematocrit 38.0 % (41.0-53.0) Mean Corpuscular Volume 88.2 fL (80.0-100.0) Mean Corpuscular Hemoglobin 29.6 pg (28.0-32.0) Mean Corpuscular Hemoglobin Concent 33.6 g/dL (32.0-36.0) Red Cell Distribution Width 14.7 % (11.8-14.3) Platelet Count 223 10^3/uL (140-450) Mean Platelet Volume 7.6 fL (6.9-10.8) Neutrophils (%) (Auto) 61.2 % (37.0-80.0) Lymphocytes (%) (Auto) 24.5 % (10.0-50.0) Monocytes (%) (Auto) 12.1 % (0.0-12.0) Eosinophils (%) (Auto) 2.0 % (0.0-7.0) Basophils (%) (Auto) 0.2 % (0.0-2.0) Neutrophils # (Auto) 3.6 10 ^3/uL (1.6-8.6) Lymphocytes # (Auto) 1.4 10 ^3/uL (0.4-5.4) Monocytes # (Auto) 0.7 10 ^3/uL (0-1.3) Eosinophils # (Auto) 0.1 10 ^3/uL (0-0.8) Basophils # (Auto) 0 10 ^3/uL (0-0.2) Nucleated Red Blood Cells 0.1 % Sodium Level 139 mmol/L (136-145) Potassium Level 4.4 mmol/L (3.5-5.1) Chloride Level 103 mmol/L (98-107) Carbon Dioxide Level 30 mmol/L (20-31) Anion Gap 6 (5-15) Blood Urea Nitrogen 21 mg/dL (9-23) Creatinine 0.69 mg/dL (0.700-1.30) Glomerular Filtration Rate Calc 90 mL/min (>90) BUN/Creatinine Ratio 30.4 (10.0-20.0) Serum Glucose 104 mg/dL (74-106) Calcium Level 9.6 mg/dL (8.7-10.4) Magnesium Level 1.8 mg/dL (1.6-2.6) Thyroid Stimulating Hormone (TSH) 2.17 uIU/mL (0.55-4.78) Total Bilirubin 1.2 mg/dL (0.2-1.0) Aspartate Amino Transferase (AST) 12 U/L (13-40) Alanine Aminotransferase (ALT) < 9 U/L (7-40) Alkaline Phosphatase 61 U/L (46-116) Total Protein 6.0 g/dL (5.7-8.2) Albumin 3.1 g/dL (3.2-4.8) Urine Color Yellow (Yellow) Urine Clarity Turbid (Clear) Urine pH 5.5 (5.0-9.0) Urine Specific [place] 1.026 (1.001-1.035) Urine Protein 1+ (Negative) Urine Ketones 1+ (Negative) Urine Blood 1+ /uL (Negative) Urine Nitrite Negative (Negative) Urine Bilirubin Negative (Negative) Urine Urobilinogen Normal mg/dL (Negative) Urine Leukocyte Esterase 3+ /uL (Negative) Urine RBC 5 /hpf (0 - 3) Urine Microscopic WBC 60 /HPF (0-3) Urine Squamous Epithelial Cells Few /hpf (<5) Urine Bacteria Many /hpf (None Seen) Urine Mucus Few (None Seen) Urine Glucose Normal mg/dL (Normal) Test 07/15/24 11:44 07/15/24 00:30 07/14/24 23:35 07/14/24 22:40 POC Glucose 153 mg/dl (70-106) Lactic Acid Level 1.2 mmol/L (0.4-2.0) Troponin I High Sensitivity 7 ng/L (</=54) Hemoglobin A1c 5.5 % A1C (<5.7) Ammonia 12 umol/L (11-32) Carcinoembryonic Antigen 0.78 ng/mL (<=5.0) Test 07/14/24 21:20 Influenza Type A Antigen Negative (Negative) Influenza Type B Antigen Negative (Negative) SARS-CoV-2 Antigen (Rapid) Negative (NEGATIVE) Other Laboratory Tests 07/19/24 16:21 Brief Hx & Hospital Course: History of Present Illness Graham Forte is an 84-year-old male with past medical history of dementia, fibrosis, Parkinson's, kidney stones, prostatectomy, and kidney stone removal who presents to the ED with altered level of consciousness, productive phlegm, flu-like symptoms, sore throat, and congestion. Daughter Valencia at bedside states that the patient has been coughing phlegm for the last 5-6 years also complaining of poor appetite in the last few days. Upon examination patient is on 4 L via room air flow meter. Patient does not use oxygen at home per daughter. 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 Daughter also reports that there is some testicular swelling but no pain endorsed. Patient currently denies any chest pain, fever, chills, recent sick contacts, recent trauma or injury, abdominal pain, nausea, vomiting, or diarrhea. Course of hospitalization: Patient has CT scan of the chest which revealed questionable pulmonary nodule versus infiltrate. Pulmonology consultation was placed. Patient was treated with IV antibiotic therapy. A urine culture came back positive for ESBL. Antibiotic course was changed to Invanz 1 g IV daily. Midline catheter has been placed. Neurologically, the patient was more alert and able to ambulate with physical therapy. Patient has been identified to need DME in the form of a walker which was provided to the patient. Patient will be discharged home with home health services for IV antibiotic therapy including Invanz 1 g IV daily for a total of a 14 day course. He was instructed to follow up with his PCP in 1-2 weeks. Patient was daughter who was with the patient he was agreeable with discharge plan. All questions answered. Physical examination General: Alert and Oriented x3. No acute distress. Well-nourished. Eyes: EOMI. Anicteric. HENT: Moist mucous membranes. Lungs: Clear to auscultation bilaterally. No accessory muscle use. Cardiovascular: Regular rate and rhythm. No murmur. No JVD. Abdomen: Soft, non-tender and non-distended. No palpable masses. Extremities: No edema. Non-tender. Skin: No rashes or lesions. Warm. Neurologic: No focal neurological deficits. CN II-XII grossly intact, but not individually tested. Psychiatric: Cooperative. Appropriate mood and affect. Total time spent with patient discussing and formulating plan of care: 35 minutes. This medical document was created using an electronic medical record system with [employer] dictation system. Although this document has been carefully reviewed, there may still be some phonetic and typographical errors. These areas are purely typographical due to imperfections of the software programs, and do not reflect any compromise in the patient's medical care. Consults/Reason for consult Pulmonology:? Nodule, acute hypoxic respiratory failure Condition at Discharge: Guarded Final Diagnosis/Problems List Sepsis secondary to ESBL in the urine Secondary diagnosis: -Acute hypoxic respiratory failure -probable community-acquired pneumonia -? Lung mass -epididymitis -complicated cystitis -cachexia -dementia -Parkinson's disease Discharge Disposition: Home with Health Services Discharge Instruct/Medications Diet: Regular Activity: No Restrictions, As Tolerated Activity comment: Use walker as needed Follow Up/Referral: PCP in 1-2 weeks Medications: Invanz 1 g IV daily Continue all home medications 36 Discharge Statement: "Patient was advised to return to the ER or call 911 if any headaches, dizziness, shortness of breath, chest pain, abdominal pain, bleeding, fevers, or worsening of medical condition. Patient was counseled about treatment plan, medications, possible side effects, patientverbalized understanding. All questions were answered to the best of my ability. This discharge took greater then 30 minutes in planning, reviewing documentation, counseling the patient, and discussing with other team members." DME: Diagnosis: Dementia, Parkinson's disease, Pneumonia ASSESSMENT ASSESSMENT Assessment Date of Service: Jul 20, 2024 Billing Provider: CEE PARKER NP Common Visit Codes: [id number] DISCH DAY >30min CEE PARKER NP Jul 20, 2024 12:58
[2024-07-21] VITALS (13 sets, daily range): BP systolic 124–149; BP diastolic 66–88; PULSE 74–97; RESP 14–20; TEMP 97.2–99.3; O2SAT 92–99
--- NOTE | 2024-07-21 08:39 | DVHPN2 ---
Subjective Continues to have weakness. Reports that his breathing has improved. Reviewed: Care Plan, H&P, Labs, Medications Changes from previous H/P or p: No Changes General: Per HPI ENT: Throat pain Respiratory: Cough, Sputum Objective Vitals Vital Signs Date Time Temp Pulse Resp B/P (MAP) Pulse Ox O2 Delivery O2 Flow Rate FiO2 07/21/24 07:12 75 16 98 07/21/24 07:06 Room Air 0.0 07/21/24 07:06 21 07/21/24 05:00 97.9 138/88 (105) 97.9 Intake/Output Intake and Output 07/21/24 07:00 Intake Total 800 ml Output Total 200 ml Balance 600 ml Intake Oral 800 ml Output Urine Total 200 ml # Voids 2 General Appearance: Alert, Oriented X3, Cooperative, No acute distress HEENT: Atraumatic, PERRLA Lungs: Clear to auscultation, Normal air movement Cardiovascular: Normal S1, Normal S2 Abdomen: Normal bowel sounds Musculoskeletal: Normal sensory function, Normal motor function Skin: Dry, Intact Psych/Mental Status: Mental status NL, Mood NL Medications Current Medications Medications Dose Ordered Sig/Willam Route Start Time Stop Time Status Last Admin Dose Admin Ondansetron HCl 4 mg Q4HP PRN IV 07/15/24 06:45 Enoxaparin Sodium 30 mg DAILY SC 07/15/24 10:00 07/20/24 10:36 30 MG Acetaminophen 650 mg Q6HP PRN PO 07/15/24 06:45 07/20/24 05:53 650 MG Clonazepam 2 mg HSPRN PRN PO 07/15/24 11:30 Patient Own Medication 40 mg DAILY PO 07/15/24 10:00 Albuterol 2.5 mg Q4HPRN PRN NEB 07/15/24 07:15 07/18/24 06:16 2.5 MG Ipratropium [place] 0.5 mg Q4HPRN PRN NEB 07/15/24 07:15 07/18/24 06:16 0.5 MG Budesonide 0.5 mg BID NEB 07/15/24 10:00 07/21/24 07:06 0.5 MG Carbidopa/Levodopa 1 tab BID PO 07/15/24 22:00 07/20/24 22:11 1 TAB Pantoprazole Sodium 40 mg DAILY IV 07/15/24 14:30 07/20/24 10:35 40 MG Multivitamins/ Minerals 1 tab DAILY PO 07/18/24 10:00 07/20/24 10:35 1 TAB Enteral Nutritional Formula 240 ml TID PO 07/17/24 14:00 07/20/24 22:12 240 ML Ertapenem 1 gm/ Sodium Chloride 50 ml @ 100 mls/hr DAILY IV 07/19/24 10:45 07/20/24 10:38 100 MLS/HR Laboratory Results Laboratory Tests 07/19/24 16:21 Urinalysis Test 07/15/24 12:30 Urine Color Yellow (Yellow) Urine Clarity Turbid (Clear) H Urine pH 5.5 (5.0-9.0) Urine Specific [place] 1.026 (1.001-1.035) Urine Protein 1+ (Negative) H Urine Ketones 1+ (Negative) H Urine Blood 1+ /uL (Negative) H Urine Nitrite Negative (Negative) Urine Bilirubin Negative (Negative) Urine Urobilinogen Normal mg/dL (Negative) Urine Leukocyte Esterase 3+ /uL (Negative) Urine RBC 5 /hpf (0 - 3) Urine Microscopic WBC 60 /HPF (0-3) H Urine Squamous Epithelial Cells Few /hpf (<5) Urine Bacteria Many /hpf (None Seen) H Urine Mucus Few (None Seen) Urine Glucose Normal mg/dL (Normal) Microbiology Microbiology Date/Time Source Procedure Growth Status 07/15/24 12:30 Voided Urine Urine Culture - Final Escherichia coli - ESBL Complete Labs and/or images reviewed: Labs reviewed by me, Image(s) reviewed by me Assessment/Plan Assessment/Plan Impression: -Acute hypoxic respiratory failure -probable community-acquired pneumonia -? Lung mass -epididymitis -complicated cystitis -cachexia -dementia -Parkinson's disease Plan: Events: Pending discharge once home health services has been established. Discussed challenges with patient was daughter yesterday given they live in [place]. At this time they do not want the patient to go to a senior living facility. -change antibiotic therapy to ertapenem -PT consultation: Recommendations reviewed. DME ordered -pulmonology consultation: Recommendations reviewed -midline placement -bronchodilators -continue home medications for dementia and Parkinson's disease -urine culture -nutritional supplementation -repeat labs in a.m. Total time spent with patient discussing and formulating plan of care: 35 minutes. This medical document was created using an electronic medical record system with [employer] computerized dictation system. Although this document has been carefully reviewed, there may still be some phonetic and typographical errors. These areas are purely typographical due to imperfections of the software programs, and do not reflect any compromise in the patient's medical care. Plan discussed with: Patient, Other (RN) My Orders Orders - CEE PARKER NP Procedure Category Date Status Time Discharge DISCHARGE 07/20/24 Transmitted 12:54 Date of Service: Jul 21, 2024 Billing Provider: CEE PARKER NP Common Visit Codes: [id number] INP/OBS CARE(HIGH) CEE PARKER NP Jul 21, 2024 08:39
--- NOTE | 2024-07-21 18:47 | DVHPN2 ---
Progress Note - Dictate Date Seen: Jul 20, 2024 Medical Necessity Reason Pt with a Central, PICC or Fol: No Subjective Patient seen and examined at bedside. Breathing comfortably on room air. Overnight events reviewed. vital signs Vital Sign Date Time Temp Pulse Resp B/P (MAP) Pulse Ox O2 Delivery O2 Flow Rate FiO2 07/21/24 16:48 97.2 87 17 141/87 (105) 97 97.2 07/21/24 08:00 Room Air* 0 21 Total Intake and Output 07/20/24 07/20/24 07/21/24 15:00 23:00 07:00 Intake Total 400 ml 400 ml Output Total 200 ml Balance 400 ml 200 ml medications Current Medications Medications Dose Ordered Sig/Willam Route Start Time Stop Time Status Last Admin Dose Admin Ondansetron HCl 4 mg Q4HP PRN IV 07/15/24 06:45 Enoxaparin Sodium 30 mg DAILY SC 07/15/24 10:00 07/21/24 09:17 30 MG Acetaminophen 650 mg Q6HP PRN PO 07/15/24 06:45 07/20/24 05:53 650 MG Clonazepam 2 mg HSPRN PRN PO 07/15/24 11:30 Patient Own Medication 40 mg DAILY PO 07/15/24 10:00 Albuterol 2.5 mg Q4HPRN PRN NEB 07/15/24 07:15 07/18/24 06:16 2.5 MG Ipratropium [place] 0.5 mg Q4HPRN PRN NEB 07/15/24 07:15 07/18/24 06:16 0.5 MG Budesonide 0.5 mg BID NEB 07/15/24 10:00 07/21/24 07:06 0.5 MG Carbidopa/Levodopa 1 tab BID PO 07/15/24 22:00 07/21/24 10:00 1 TAB Pantoprazole Sodium 40 mg DAILY IV 07/15/24 14:30 07/21/24 09:17 40 MG Multivitamins/ Minerals 1 tab DAILY PO 07/18/24 10:00 07/21/24 09:17 1 TAB Enteral Nutritional Formula 240 ml TID PO 07/17/24 14:00 07/21/24 14:14 240 ML Ertapenem 1 gm/ Sodium Chloride 50 ml @ 100 mls/hr DAILY IV 07/19/24 10:45 4/15/25 09:17 100 MLS/HR objective Gen.: Patient lying in bed in no apparent distress. On room air. Head: Normocephalic, atraumatic. Eyes: EOMI/PERRLA. Ears: Normal hearing. Normal anatomy. Neck/trachea: Trachea midline, supple. Nose: Normal external anatomy. Mouth: Moist mucous membranes. Chest: Decreased air entry bilaterally. Expiratory wheezing in lower lobes. No rhonchi. Cardiovascular: Positive S1, positive S2. Regular rate and rhythm. Abdomen: Positive bowel sounds in all 4 quadrants. Soft, non-tender, non- distended. : Deferred. Rectal: Deferred. Skin: Warm, dry. Intact. Extremities: 2+ radial pulses bilaterally. No lower extremity edema. Neuro: Awake, alert, oriented x3. No gross motor or sensory deficits. Cranial nerves II through XII intact. Gait not assessed. laboratory and microbiology Laboratory Tests 07/19/24 16:21 Test 07/19/24 16:21 Range/Units Serum Glucose 104 74-106 mg/dL Assessment/Plan Impression: Acute hypoxic respiratory failure Dyspnea on exertion Chronic obstructive pulmonary disease ? Left lower lobe mass Pneumonia Chronic cough Epididymitis Complicated cystitis Cachexia, BMI 17.2 Events: Breathing comfortably on room air Supplemental oxygen PRN Continue bronchodilators/Pulmicort Continue antibiotics Sinemet PT recommendations reviewed, DME ordered Labs and imaging reviewed. Rest of plan as noted below. Plan: Supplemental oxygen PRN Titrate to keep O2 sats above 92%. Bronchodilators/Pulmicort. Continue antibiotics Monitor renal function. Monitor electrolytes. Supplement as necessary. Monitor ins and outs. Accu-Cheks. GI prophylaxis - Protonix DVT prophylaxis - Lovenox. Prognosis: Poor given patient's multiple co-morbidities. Rest of plan per hospitalist and other consultants. Thank you, NEIDA Calloway, for allowing me to participate in this patient's care. Further recommendations will depend on the patient's clinical course. Please do not hesitate to contact me if you have any questions or concerns. This medical document was created using an electronic medical record system with [employer] dictation system. Although these documentations are being carefully reviewed, there may still be some phonetic and typographical changes. The errors are purely typographical, due to imperfection on the software program, and do not reflect any compromise in the patient's medical care. Dietary Evaluation Review Recommendations by RD: Increase Calorie Intake, Protein Supplementation Comments: 1) Liberalixing diet to 2gm Na 2) Ensure Enlive 240ml TID (ordered per protocol) 3) MVI 1 tba daily 4) Continue current plan of care Expected Outcomes/Goals: Pt will meet >75% estimated needs Fu 3-5 days Food and Nutrition Intake (Sev: <50% est energy req 5days Body Fat Depletion (Severe): Mod to Severe Depletion Muscle Mass (Severe): Mod to Severe Depletion Protein Calorie Malnutrition: Severe Is there a minimum of two crit: Yes Plan discussed with: Patient, Other (RN Irineo) HARMONY PENG MD Jul 21, 2024 18:47
--- NOTE | 2024-07-21 20:01 | DVHPN2 ---
Progress Note - Dictate Date Seen: Jul 21, 2024 Medical Necessity Reason Pt with a Central, PICC or Fol: No Subjective Patient seen and examined at bedside. Breathing comfortably on room air. Overnight events reviewed. vital signs Vital Sign Date Time Temp Pulse Resp B/P (MAP) Pulse Ox O2 Delivery O2 Flow Rate FiO2 07/21/24 16:48 97.2 87 17 141/87 (105) 97 97.2 07/21/24 08:00 Room Air* 0 21 Total Intake and Output 07/20/24 07/20/24 07/21/24 15:00 23:00 07:00 Intake Total 400 ml 400 ml Output Total 200 ml Balance 400 ml 200 ml medications Current Medications Medications Dose Ordered Sig/Willam Route Start Time Stop Time Status Last Admin Dose Admin Ondansetron HCl 4 mg Q4HP PRN IV 07/15/24 06:45 Enoxaparin Sodium 30 mg DAILY SC 07/15/24 10:00 07/21/24 09:17 30 MG Acetaminophen 650 mg Q6HP PRN PO 07/15/24 06:45 07/20/24 05:53 650 MG Clonazepam 2 mg HSPRN PRN PO 07/15/24 11:30 Patient Own Medication 40 mg DAILY PO 07/15/24 10:00 Albuterol 2.5 mg Q4HPRN PRN NEB 07/15/24 07:15 07/18/24 06:16 2.5 MG Ipratropium [place] 0.5 mg Q4HPRN PRN NEB 07/15/24 07:15 07/18/24 06:16 0.5 MG Budesonide 0.5 mg BID NEB 07/15/24 10:00 07/21/24 07:06 0.5 MG Carbidopa/Levodopa 1 tab BID PO 07/15/24 22:00 07/21/24 10:00 1 TAB Pantoprazole Sodium 40 mg DAILY IV 07/15/24 14:30 07/21/24 09:17 40 MG Multivitamins/ Minerals 1 tab DAILY PO 07/18/24 10:00 07/21/24 09:17 1 TAB Enteral Nutritional Formula 240 ml TID PO 07/17/24 14:00 07/21/24 14:14 240 ML Ertapenem 1 gm/ Sodium Chloride 50 ml @ 100 mls/hr DAILY IV 07/19/24 10:45 4/15/25 09:17 100 MLS/HR objective Gen.: Patient lying in bed in no apparent distress. On room air. Head: Normocephalic, atraumatic. Eyes: EOMI/PERRLA. Ears: Normal hearing. Normal anatomy. Neck/trachea: Trachea midline, supple. Nose: Normal external anatomy. Mouth: Moist mucous membranes. Chest: Decreased air entry bilaterally. Expiratory wheezing in lower lobes. No rhonchi. Cardiovascular: Positive S1, positive S2. Regular rate and rhythm. Abdomen: Positive bowel sounds in all 4 quadrants. Soft, non-tender, non- distended. : Deferred. Rectal: Deferred. Skin: Warm, dry. Intact. Extremities: 2+ radial pulses bilaterally. No lower extremity edema. Neuro: Awake, alert, oriented x3. No gross motor or sensory deficits. Cranial nerves II through XII intact. Gait not assessed. laboratory and microbiology Laboratory Tests 07/19/24 16:21 Test 07/19/24 16:21 Range/Units Serum Glucose 104 74-106 mg/dL Assessment/Plan Impression: Acute hypoxic respiratory failure Dyspnea on exertion Chronic obstructive pulmonary disease ? Left lower lobe mass Pneumonia Chronic cough Epididymitis Complicated cystitis Cachexia, BMI 17.2 Events: Breathing comfortably on room air Supplemental oxygen PRN No distress Head of bed elevation Aspiration precautions Continue bronchodilators/Pulmicort Continue antibiotics Incentive spirometry Sinemet PT recommendations reviewed, DME ordered Arrange for home antibiotics and home health Labs and imaging reviewed. Rest of plan as noted below. Plan: Supplemental oxygen PRN Titrate to keep O2 sats above 92%. Bronchodilators/Pulmicort. Continue antibiotics Monitor renal function. Monitor electrolytes. Supplement as necessary. Monitor ins and outs. Accu-Cheks. GI prophylaxis - Protonix DVT prophylaxis - Lovenox. Prognosis: Poor given patient's multiple co-morbidities. Rest of plan per hospitalist and other consultants. Thank you, NEIDA Calloway, for allowing me to participate in this patient's care. Further recommendations will depend on the patient's clinical course. Please do not hesitate to contact me if you have any questions or concerns. This medical document was created using an electronic medical record system with [employer] dictation system. Although these documentations are being carefully reviewed, there may still be some phonetic and typographical changes. The errors are purely typographical, due to imperfection on the software program, and do not reflect any compromise in the patient's medical care. Dietary Evaluation Review Recommendations by RD: Increase Calorie Intake, Protein Supplementation Comments: 1) Liberalixing diet to 2gm Na 2) Ensure Enlive 240ml TID (ordered per protocol) 3) MVI 1 tba daily 4) Continue current plan of care Expected Outcomes/Goals: Pt will meet >75% estimated needs Fu 3-5 days Food and Nutrition Intake (Sev: <50% est energy req 5days Body Fat Depletion (Severe): Mod to Severe Depletion Muscle Mass (Severe): Mod to Severe Depletion Protein Calorie Malnutrition: Severe Is there a minimum of two crit: Yes Plan discussed with: Patient, Other (RN Irineo) HARMONY PENG MD Jul 21, 2024 20:01
[2024-07-22] VITALS (11 sets, daily range): BP systolic 110–138; BP diastolic 74–83; PULSE 76–92; RESP 16–18; TEMP 36.5; O2SAT 93–98
--- NOTE | 2024-07-22 11:53 | DVHPN2 ---
Subjective Continues to have weakness. Reports that his breathing has improved. Reviewed: Care Plan, H&P, Labs, Medications Changes from previous H/P or p: No Changes General: Per HPI ENT: Throat pain Respiratory: Cough, Sputum Objective Vitals Vital Signs Date Time Temp Pulse Resp B/P (MAP) Pulse Ox O2 Delivery O2 Flow Rate FiO2 07/22/24 10:00 97.3 76 18 133/83 (100) 96 97.3 07/22/24 06:43 Room Air* 0 21 Intake/Output Intake and Output 07/22/24 07:00 Intake Total 1000 ml Balance 1000 ml Intake Oral 1000 ml # Voids 2 General Appearance: Alert, Oriented X3, Cooperative, No acute distress HEENT: Atraumatic, PERRLA Lungs: Clear to auscultation, Normal air movement Cardiovascular: Normal S1, Normal S2 Abdomen: Normal bowel sounds Musculoskeletal: Normal sensory function, Normal motor function Skin: Dry, Intact Psych/Mental Status: Mental status NL, Mood NL Medications Current Medications Medications Dose Ordered Sig/Willam Route Start Time Stop Time Status Last Admin Dose Admin Ondansetron HCl 4 mg Q4HP PRN IV 07/15/24 06:45 Enoxaparin Sodium 30 mg DAILY SC 07/15/24 10:00 07/22/24 10:25 30 MG Acetaminophen 650 mg Q6HP PRN PO 07/15/24 06:45 07/20/24 05:53 650 MG Clonazepam 2 mg HSPRN PRN PO 07/15/24 11:30 Patient Own Medication 40 mg DAILY PO 07/15/24 10:00 Albuterol 2.5 mg Q4HPRN PRN NEB 07/15/24 07:15 07/21/24 22:23 2.5 MG Ipratropium [place] 0.5 mg Q4HPRN PRN NEB 07/15/24 07:15 07/21/24 22:23 0.5 MG Budesonide 0.5 mg BID NEB 07/15/24 10:00 07/22/24 06:43 0.5 MG Carbidopa/Levodopa 1 tab BID PO 07/15/24 22:00 07/22/24 10:25 1 TAB Pantoprazole Sodium 40 mg DAILY IV 07/15/24 14:30 07/22/24 10:25 40 MG Multivitamins/ Minerals 1 tab DAILY PO 07/18/24 10:00 07/22/24 10:25 1 TAB Enteral Nutritional Formula 240 ml TID PO 07/17/24 14:00 07/21/24 21:55 240 ML Ertapenem 1 gm/ Sodium Chloride 50 ml @ 100 mls/hr DAILY IV 07/19/24 10:45 07/22/24 10:25 100 MLS/HR Laboratory Results Laboratory Tests 07/19/24 16:21 Urinalysis Test 07/15/24 12:30 Urine Color Yellow (Yellow) Urine Clarity Turbid (Clear) H Urine pH 5.5 (5.0-9.0) Urine Specific [place] 1.026 (1.001-1.035) Urine Protein 1+ (Negative) H Urine Ketones 1+ (Negative) H Urine Blood 1+ /uL (Negative) H Urine Nitrite Negative (Negative) Urine Bilirubin Negative (Negative) Urine Urobilinogen Normal mg/dL (Negative) Urine Leukocyte Esterase 3+ /uL (Negative) Urine RBC 5 /hpf (0 - 3) Urine Microscopic WBC 60 /HPF (0-3) H Urine Squamous Epithelial Cells Few /hpf (<5) Urine Bacteria Many /hpf (None Seen) H Urine Mucus Few (None Seen) Urine Glucose Normal mg/dL (Normal) Microbiology Microbiology Date/Time Source Procedure Growth Status 07/15/24 12:30 Voided Urine Urine Culture - Final Escherichia coli - ESBL Complete Labs and/or images reviewed: Labs reviewed by me, Image(s) reviewed by me Assessment/Plan Assessment/Plan Impression: -Acute hypoxic respiratory failure -probable community-acquired pneumonia -? Lung mass -epididymitis -complicated cystitis -cachexia -dementia -Parkinson's disease Plan: Events: Pending discharge today. Discussed with case management. -change antibiotic therapy to ertapenem -PT consultation: Recommendations reviewed. DME ordered -pulmonology consultation: Recommendations reviewed -midline placement -bronchodilators -continue home medications for dementia and Parkinson's disease -urine culture -nutritional supplementation -repeat labs in a.m. Total time spent with patient discussing and formulating plan of care: 35 minutes. This medical document was created using an electronic medical record system with [employer] system. Although this document has been carefully reviewed, there may still be some phonetic and typographical errors. These areas are purely typographical due to imperfections of the software programs, and do not reflect any compromise in the patient's medical care. Plan discussed with: Patient, Other (RN) Date of Service: Jul 22, 2024 Billing Provider: CEE PARKER NP Common Visit Codes: [id number] INP/OBS CARE(HIGH) CEE PARKER NP Jul 22, 2024 11:53
--- NOTE | 2024-07-22 20:49 | DVHPN2 ---
Progress Note - Dictate Date Seen: Jul 22, 2024 Medical Necessity Reason Pt with a Central, PICC or Fol: No Subjective Patient seen and examined at bedside. Breathing comfortably on room air. Overnight events reviewed. vital signs Vital Sign Date Time Temp Pulse Resp B/P (MAP) Pulse Ox O2 Delivery O2 Flow Rate FiO2 07/22/24 20:23 36.5 07/22/24 17:00 79 18 128/79 (95) 95 07/22/24 08:00 Room Air* 0 21 Total Intake and Output 07/21/24 07/21/24 07/22/24 15:00 23:00 07:00 Intake Total 1000 ml 0 ml Balance 1000 ml 0 ml medications Current Medications Medications Dose Ordered Sig/Willam Route Start Time Stop Time Status Last Admin Dose Admin Ondansetron HCl 4 mg Q4HP PRN IV 07/15/24 06:45 Enoxaparin Sodium 30 mg DAILY SC 07/15/24 10:00 07/22/24 10:25 30 MG Acetaminophen 650 mg Q6HP PRN PO 07/15/24 06:45 07/20/24 05:53 650 MG Clonazepam 2 mg HSPRN PRN PO 07/15/24 11:30 Patient Own Medication 40 mg DAILY PO 07/15/24 10:00 Albuterol 2.5 mg Q4HPRN PRN NEB 07/15/24 07:15 07/21/24 22:23 2.5 MG Ipratropium [place] 0.5 mg Q4HPRN PRN NEB 07/15/24 07:15 07/21/24 22:23 0.5 MG Budesonide 0.5 mg BID NEB 07/15/24 10:00 07/22/24 06:43 0.5 MG Carbidopa/Levodopa 1 tab BID PO 07/15/24 22:00 07/22/24 10:25 1 TAB Pantoprazole Sodium 40 mg DAILY IV 07/15/24 14:30 07/22/24 10:25 40 MG Multivitamins/ Minerals 1 tab DAILY PO 07/18/24 10:00 07/22/24 10:25 1 TAB Enteral Nutritional Formula 240 ml TID PO 07/17/24 14:00 07/21/24 21:55 240 ML Ertapenem 1 gm/ Sodium Chloride 50 ml @ 100 mls/hr DAILY IV 07/19/24 10:45 07/22/24 10:25 100 MLS/HR objective Gen.: Patient lying in bed in no apparent distress. On room air. Head: Normocephalic, atraumatic. Eyes: EOMI/PERRLA. Ears: Normal hearing. Normal anatomy. Neck/trachea: Trachea midline, supple. Nose: Normal external anatomy. Mouth: Moist mucous membranes. Chest: Decreased air entry bilaterally. Expiratory wheezing in lower lobes. No rhonchi. Cardiovascular: Positive S1, positive S2. Regular rate and rhythm. Abdomen: Positive bowel sounds in all 4 quadrants. Soft, non-tender, non- distended. : Deferred. Rectal: Deferred. Skin: Warm, dry. Intact. Extremities: 2+ radial pulses bilaterally. No lower extremity edema. Neuro: Awake, alert, oriented x3. No gross motor or sensory deficits. Cranial nerves II through XII intact. Gait not assessed. laboratory and microbiology Laboratory Tests 07/19/24 16:21 Test 07/19/24 16:21 Range/Units Serum Glucose 104 74-106 mg/dL Assessment/Plan Impression: Acute hypoxic respiratory failure Dyspnea on exertion Chronic obstructive pulmonary disease ? Left lower lobe mass Pneumonia Chronic cough Epididymitis Complicated cystitis Cachexia, BMI 17.2 Events: Breathing comfortably on room air Supplemental oxygen PRN No distress Head of bed elevation Aspiration precautions Continue bronchodilators/Pulmicort Continue antibiotics Continue steroids Incentive spirometry Sinemet PT recommendations reviewed, DME ordered Arrange for home antibiotics and home health Disposition per hospitalist Labs and imaging reviewed. Rest of plan as noted below. Plan: Supplemental oxygen PRN Titrate to keep O2 sats above 92%. Bronchodilators/Pulmicort. Continue antibiotics Continue steroids Monitor renal function. Monitor electrolytes. Supplement as necessary. Monitor ins and outs. Accu-Cheks. GI prophylaxis - Protonix DVT prophylaxis - Lovenox. Prognosis: Poor given patient's multiple co-morbidities. Rest of plan per hospitalist and other consultants. Thank you, NEIDA Calloway, for allowing me to participate in this patient's care. Further recommendations will depend on the patient's clinical course. Please do not hesitate to contact me if you have any questions or concerns. This medical document was created using an electronic medical record system with [employer] dictation system. Although these documentations are being carefully reviewed, there may still be some phonetic and typographical changes. The errors are purely typographical, due to imperfection on the software program, and do not reflect any compromise in the patient's medical care. Dietary Evaluation Review Recommendations by RD: Increase Calorie Intake, Protein Supplementation Comments: 1) Liberalixing diet to 2gm Na 2) Ensure Enlive 240ml TID (ordered per protocol) 3) MVI 1 tba daily 4) Continue current plan of care Expected Outcomes/Goals: Pt will meet >75% estimated needs Fu 3-5 days Food and Nutrition Intake (Sev: <50% est energy req 5days Body Fat Depletion (Severe): Mod to Severe Depletion Muscle Mass (Severe): Mod to Severe Depletion Protein Calorie Malnutrition: Severe Is there a minimum of two crit: Yes Plan discussed with: Patient, Other (RN Don) HARMONY PENG MD Jul 22, 2024 20:49
--- NOTE | 2024-07-23 10:01 | ECG ---
[facility] Test Date: 2024-07-14 Test Time: 21:57:05 Pat Name: Graham REINA CLARKE Department: ER Room: 0235 A Gender: M [employer]: KRISTIN : 1940 Requested By: LUCIANA HARLEY Order Number: [id number] Reading MD: Villa Oneill Measurements Intervals [place] Rate: 88 P: 72 PA: 145 QRS: 93 QRSD: 137 T: -13 QT: 404 QTc: 489 Interpretive Statements Sinus rhythm Multiple premature complexes, vent & supraven Biatrial enlargement RBBB and LPFB Baseline wander in lead(s) V3,V5 Electronically Signed On 07-24-2024 13:31:16 PDT by Villa Oneill Please click the below link to view image of tracing.
== END 2024-07-22 21:02 | disposition home or self-care (01) | DRG 133 ==
LOC: ER 21:04 → OVERFLOW 07-15 06:43 → WEST WING 07-15 18:30 → EAST 07-18 16:23
PROVIDERS: ADMIT Nurse Practitioner Acute Care; ATTEND Family Medicine
PROC: 05H933Z Insertion of Infusion Device into Right Brachial Vein, Percutaneous Approach (ICD-10-PCS; principal; 2024-07-19)
PROC: B54MZZA Ultrasonography of Right Upper Extremity Veins, Guidance (ICD-10-PCS; 2024-07-19)
DX: J96.01 Acute respiratory failure with hypoxia (principal); G93.41 Metabolic encephalopathy; J15.69 Pneumonia due to other Gram-negative bacteria; R64 Cachexia; E87.20 Acidosis, unspecified; J15.9 Unspecified bacterial pneumonia; J44.0 Chronic obstructive pulmonary disease with (acute) lower respiratory infection; F02.80 Dementia in other diseases classified elsewhere, unspecified severity, without behavioral disturbance, psychotic disturbance, mood disturbance, and anxiety; R73.9 Hyperglycemia, unspecified; Z68.1 Body mass index [BMI] 19.9 or less, adult; Z20.822 Contact with and (suspected) exposure to COVID-19; G20.A1 Parkinson's disease without dyskinesia, without mention of fluctuations; N45.1 Epididymitis; N43.3 Hydrocele, unspecified; E80.6 Other disorders of bilirubin metabolism; J98.11 Atelectasis; N30.00 Acute cystitis without hematuria; Z99.81 Dependence on supplemental oxygen; Z80.1 Family history of malignant neoplasm of trachea, bronchus and lung; Z82.5 Family history of asthma and other chronic lower respiratory diseases; Z83.3 Family history of diabetes mellitus; Z87.442 Personal history of urinary calculi; Z90.79 Acquired absence of other genital organ(s); R91.8 Other nonspecific abnormal finding of lung field
CPT/HCPCS: 36415; 70450; 71045; 71250; 74176; 76870; 80048; 80053; 81001; 82140; 82378; 82962; 83036; 83605; 83735; 84443; 84484; 85025; 87086; 87088; 87186; 87426; 87804; 93005; 94640; 97110; 97116; 97163; 97530; G0378; J1335; J1815; J2470